=== PATIENT | female | born 1930 | race Caucasian/White ===

== ENCOUNTER 2017-04-02 13:45 | Inpatient (IN) | payer BC ==
[~2017-04-02] VITALS: Ht 160 cm; Wt 75.0 kg
[2017-04-02 14:20] VITALS: Ht 160 cm; Wt 75.0 kg
--- NOTE | 2017-04-02 14:46 | ERA ---
ER Documentation Chief Complaint Date/Time DATE: 04/02/17 TIME: 14:37 Chief Complaint HPI This is an 87-year-old female with no reported past medical history, though she is extremely hard of hearing who was found down this afternoon in the bathroom by her son with whom she lives. The patient states that she was taking a shower when she slipped. She does feel that this was a mechanical fall, but she does not know if she could have lost consciousness. She does not know exactly how long she was down for. She was found in the bathroom by her son. She did appear to hit her face and her hands and her left foot, which are all bruised. She does endorse tenderness to the right side of her face where the bruising is most prominent. She also has periorbital swelling that makes it difficult for her to open her eyelids. She does not have any eye pain. She does not describe any vision changes. She does not endorse any other head ache. She has no neck or back pain. She has no chest pain or trouble breathing. She has no abdominal pain. She is not incontinent of urine or stool. She has some discomfort to her hands bilaterally where there is bruising. She also some discomfort to the right elbow. However, she has full range of motion to all joints of her extremities. She denies any lower extremity pain or tenderness. She does have deformities to her toenails, but this is chronic. She has an abrasion to the left great toe, but she is able to move that as well. The patient does not have any other complaints at this time. ROS All systems reviewed and are negative except as per history of present illness. Medications Home Meds No Active Prescriptions or Reported Meds Allergies Allergies: Coded Allergies: Penicillins (Unverified Allergy, Unknown, 04/02/17) PMhx/Soc Medical and Surgical Hx: pt denies Medical Hx, pt denies Surgical Hx Hx Alcohol Use: No Hx Substance Use: No Hx Tobacco Use: No Smoking Status: Never smoker FmHx Family History: No coronary disease, No diabetes, No other Physical Exam Vitals Vital Signs Date Time Temp Pulse Resp B/P Pulse Ox O2 Delivery O2 Flow Rate FiO2 04/02/17 18:30 98.6 87 18 160/84 99 Room Air 04/02/17 18:02 78 18 152/115 96 Room Air 04/02/17 14:20 98.6 116 20 156/71 99 Physical Exam Const: No apparent distress, extreme hard of hearing, awake and alert. Head: Right-sided periorbital bruising and edema Eyes: Normal Conjunctiva, extraocular movements intact ENT: Normal External Ears, Nose and Mouth. No oral injuries. No hemotympanum. Neck: No midline cervical spine tenderness. ~ No meningismus. Resp: Clear to auscultation bilaterally Cardio: Regular rate and rhythm, no murmurs Abd: Soft, non tender, non distended. Normal bowel sounds Skin: Bruising to the bilateral hands, right face and left foot Back: No midline or flank tenderness Ext: No cyanosis. Nonpitting bilateral lower extreme and edema Neur: Awake and alert, follows commands in all extremities with normal strength and sensation, extraocular movements intact Psych: Normal Mood and Affect Result Diagram: 04/02/17 1426 04/02/17 1426 Results 24 hrs Laboratory Tests Test 04/02/17 14:26 White Blood Count 26.310^3/ul Red Blood Count 4.7410^6/ul Hemoglobin 14.5g/dl Hematocrit 45.1% Mean Corpuscular Volume 95.1fl Mean Corpuscular Hemoglobin 30.6pg Mean Corpuscular Hemoglobin Concent 32.2g/dl Red Cell Distribution Width 13.5% Platelet Count 43258^3/UL Mean Platelet Volume 10.3fl Neutrophils % % Segmented Neutrophils % (Manual) 85% Band Neutrophils % (Manual) 2% Lymphocytes % % Lymphocytes % (Manual) 5% Monocytes % % Monocytes % (Manual) 8% Eosinophils % % Basophils % % Nucleated Red Blood Cells % 0.0/100WBC Neutrophils # 22.410^3/ul Neutrophils # (Manual) 2210^3/ul Band Neutrophils # 0.510^3/ul Absolute Lymphocytes (Manual) 1.310^3/ul Lymphocytes # 1.310^3/ul Monocytes # 2.110^3/ul Absolute Monocytes (Manual) 2.110^3/ul Eosinophils # 10^3/ul Basophils # 10^3/ul Nucleated Red Blood Cells # 10^3/ul Platelet Morphology Comment Anisocytosis FEW Macrocytosis FEW Prothrombin Time 14.0Sec Prothrombin Time Ratio 1.1 INR International Normalized Ratio 1.08 Activated Partial Thromboplast Time 28.8Sec Sodium Level 141mmol/L Potassium Level 4.0mmol/L Chloride Level 109mmol/L Carbon Dioxide Level 15mmol/L Anion Gap 21 Blood Urea Nitrogen 20mg/dl Creatinine 1.12mg/dl Glucose Level 131mg/dl Calcium Level 10.0mg/dl Total Bilirubin 0.6mg/dl Direct Bilirubin 0.00mg/dl Indirect Bilirubin 0.6mg/dl Aspartate Amino Transf (AST/SGOT) 77IU/L Alanine Aminotransferase (ALT/SGPT) 50IU/L Alkaline Phosphatase 145IU/L Creatine Kinase 5932IU/L Total Protein 7.7g/dl Albumin 4.1g/dl Current Medications Medications (Trade) Dose Ordered Sig/Maricarmen Route PRN Reason Start Time Stop Time Status Last Admin Dose Admin Sodium Chloride 1,000 ml @ 1,000 mls/hr Q1H ONCE IV 04/02/17 15:30 04/02/17 16:29 DC 04/02/17 15:57 Sodium Chloride (NS) 1,000 ml @ 80 mls/hr [id number] IV 04/02/17 18:25 04/02/17 19:15 DC Ondansetron HCl (Zofran Inj) 4 mg BRIDGE ORDER PRN IV NAUSEA AND/OR VOMITING 04/02/17 18:30 04/02/17 19:14 DC Acetaminophen 650 mg 650 mg ER BRIDGE PRN PO MILD PAIN/FEVER 04/02/17 18:30 04/03/17 18:29 Sodium Chloride (NS) 1,000 ml @ 175 mls/hr [id number] IV 04/02/17 19:05 IV Flush (NS 3 ml) 3 ml PER PROTOCOL IV 04/02/17 19:30 Ondansetron HCl (Zofran Inj) 4 mg Q6H PRN IV NAUSEA AND/OR VOMITING 04/02/17 19:30 Morphine Sulfate (morphine) 2 mg Q4H PRN IV SEVERE PAIN LEVEL 7-10 04/02/17 19:30 Magnesium Hydroxide (Milk Of Mag) 30 ml DAILY PRN PO CONSTIPATION 04/02/17 19:30 Hydralazine HCl (Apresoline) 10 mg Q4H PRN IV SBP>160 04/02/17 19:30 Procedures/MDM The patient presents after a fall. It is unclear if the patient could have syncopized. Syncope and trauma workup were performed. The patient was found to have leukocytosis but no left shift. I do believe this to be reactive. She has no obvious findings of a systemic infection at this time. Patient's CMP showed an elevation of her BUN and creatinine. A CK was also done that demonstrated rhabdomyolysis. Patient was given IV fluids in the emergency department. CT scan of the head and face were performed without any obvious acute posttraumatic abnormalities. There is no intracranial hemorrhage. There is no evidence of fracture or dislocation to the face. There was soft tissue swelling and edema anteriorly that was also noticeable clinically. CT scan of the cervical spine demonstrated multiple regions of mild anterolisthesis. The patient has no cervical spine midline tenderness. There are no obvious traumatic injuries or fractures. The patient was able to range her neck with no discomfort. Her cervical spine was clinically cleared in the emergency department. Patient's chest x-ray revealed mild cardiomegaly, mild pulmonary congestion and a calcific aorta. There are no signs of traumatic injury however. The patient had x-rays performed of her extremities as well in areas of bruising. They demonstrated degenerative changes but no obvious fracture or dislocation. The patient requires admission for follow-up of her head injury as well as for rhabdomyolysis. The patient was given IV fluids in the emergency department and was started on a normal saline infusion. She may require serial neuro exams and may require repeat CT scan in the morning given the severity of her injury. She currently does not have any focal deficits. further workup in the hospital will be deferred to the hospitalist service. Departure Diagnosis: Primary Impression: Rhabdomyolysis Qualified Code: T79.6XXA - Traumatic rhabdomyolysis, initial encounter Additional Impressions: Head injury Qualified Code: S09.90XA - Head injury, initial encounter Periorbital edema of right eye Traumatic ecchymosis of multiple sites of lower extremity Qualified Code: S80.10XA - Traumatic ecchymosis of multiple sites of lower extremity, unspecified laterality, initial encounter Condition: Serious KULDIP LOPEZ MD Apr 02, 2017 14:45
[2017-04-02 14:50] LABS: ABNORMAL IP MESSAGE 1; HEMATOCRIT 45.1 % (37.0-47.0); HEMOGLOBIN 14.5 g/dl (12.0-16.0); MEAN CORPUSCULAR HEMOGLOBIN 30.6 pg (29.0-33.0); MEAN CORPUSCULAR HGB CONC 32.2 g/dl (32.0-37.0); MEAN CORPUSCULAR VOLUME 95.1 fl (82.0-101.0); MEAN PLATELET VOLUME 10.3 fl (7.4-10.4); PLATELET COUNT 297 10^3/UL (140-415); RED BLOOD COUNT 4.74 10^6/ul (4.20-5.40); RED CELL DISTRIBUTION WIDTH 13.5 % (11.5-14.5); WHITE BLOOD COUNT 26.3 10^3/ul (4.8-10.8)
[2017-04-02 14:59] LABS: POSITIVE DIFF @See below
--- NOTE | 2017-04-02 15:11 | RADRPT ---
PROCEDURE: XR Chest. CLINICAL INDICATION: Trauma TECHNIQUE: Single frontal view of the chest was obtained. COMPARISON: None. FINDINGS: There is mild cardiomegaly and mild pulmonary vascular congestion. The aortic arch is calcified. The lungs are clear. There is no significant pleural effusion or pneumothorax. IMPRESSION: Mild cardiomegaly and mild pulmonary vascular congestion. Aortic atherosclerosis. RPTAT: EE Physician Vilma Date Time Electronically viewed and signed by Austyn Mckeon Physician on 04/02/2017 15:10 /
[2017-04-02 15:13] LABS: INR 1.08; PT RATIO 1.1
[2017-04-02 15:14] LABS: PARTIAL THROMBOPLASTIN TIME 28.8 Sec (25.0-35.0)
[2017-04-02 15:17] LABS: ALBUMIN 4.1 g/dl (3.3-4.9); BILIRUBIN,INDIRECT 0.6 mg/dl (0-1.1); BILIRUBIN,TOTAL 0.6 mg/dl (0.2-1.3); CREATININE 1.12 mg/dl (0.44-1.00); TOTAL PROTEIN 7.7 g/dl (6.1-8.1)
--- NOTE | 2017-04-02 15:29 | RADRPT ---
PROCEDURE: CT Brain without contrast. CLINICAL INDICATION: Trauma, pain. TECHNIQUE: A CT of the brain was performed on multidetector high-resolution CT scanner utilizing a xial sections from the skull base through the vertex without contrast. The scan was reviewed in sof t tissue brain and high frequency resolution bone algorithm windows. Images were reviewed on a high -resolution PACS workstation. One or more the following does reduction techniques were utilized: Aut omated exposure control, adjustment of the mA/ or kV according to patient's size, or use of iterativ e reconstruction technique. The exam CTDI = 43.95 mGy and the DLP = 630.2 mGy-cm. COMPARISON: None available. FINDINGS: The ventricles and sulci are mildly prominent indicative of volume loss. There is no intracranial h emorrhage, mass effect or midline shift. No abnormal intra-axial or extra-axial fluid collections a re seen. The dai/white matter differentiation is preserved. There are mild scattered foci of hypoattenuation in the white matter, which are nonspecific in etiol ogy but likely reflect chronic small vessel ischemic changes. There are mild intracranial vascular calcifications consistent with atherosclerosis. The visualized paranasal sinuses are essentially paula ar. Right frontal temporal scalp swelling and hematoma are noted without underlying skull fracture. IMPRESSION: 1. No acute intracranial hemorrhage, transcortical infarction or mass effect. 2. Mild intracranial atherosclerosis and chronic small vessel ischemic changes. 3. Mild generalized cerebral volume loss. 4. Right frontal temporal scalp swelling and hematoma are noted without underlying skull fracture. RPTAT: HH .Kimmie Lo MD, MD Date Time Electronically viewed and signed by .Kimmie Lo MD, MD on 04/02/2017 15:29 .N/
[2017-04-02] MEDS ORDERED: SOD CHLORIDE 0.9% 1,000 ML IV ONE (15:30)
--- NOTE | 2017-04-02 15:38 | RADRPT ---
PROCEDURE: Noncontrast CT facial bones. CLINICAL INDICATION: Trauma. Status post fall. Right sided facial swelling. TECHNIQUE: Noncontrast CT of the facial bones was obtained. Coronal and sagittal re-formations were provided. The administered radiation dose was CTDI vol = 29.46 mGy, DLP = 523.74 mGy-cm. One or mo re of the following dose reduction techniques were used: Automated exposure control, Adjustment of t he mA and/or kV according to patient size, or Use of iterative reconstruction technique. COMPARISON: There are no similar studies submitted for comparison. FINDINGS: OSSEOUS STRUCTURES: There is no acute fracture. No destructive osseous lesion is identified. There i s a right lateral facial/zygomatic subcutaneous hematoma measuring up to 1.4 cm in thickness. There is mild right frontal scalp subcutaneous hematoma as well. ORBITS: The bilateral globes are intact. The patient is status post left lens surgery. There is no o rbital hematoma. SINUSES: There is minimal bilateral ethmoid, minimal bilateral sphenoid, and minimal bilateral maxil jihan sinus mucosal thickening. SKULL: Please refer to the CT of the head report from the same day. There are moderate to severe d egenerative changes within the cervical spine. IMPRESSION: 1. No acute fracture. 2. The bilateral globes are intact without orbital hematoma. 3. Right lateral facial / zygomatic as well as right frontal scalp hematoma. Further findings as detailed above. RPTAT: PP .Mario Nj MD, Date Time Electronically viewed and signed by .Mario Nj MD, on 04/02/2017 15:37 .F/
--- NOTE | 2017-04-02 15:51 | RADRPT ---
PROCEDURE: CT Cervical Spine without intravenous contrast CLINICAL INDICATION: Trauma. COMPARISON: None available. TECHNIQUE: Axial noncontrast CT images of the cervical spine with coronal and sagittal reformats. DOSE ESTIMATE: CTDI vol = 22 mGy. DLP = 388 mGy-cm. One or more of the following dose reduction te chniques were used: automated exposure control, adjustment of the mA and/or kV according to patient size, or use of iterative reconstruction. FINDINGS: Alignment: Dextroconvex curvature of the lower cervical spine. 2 mm anterolisthesis of C3 on C4 and C6 on C7. 4 mm anterolisthesis of C7 on T1. Vertebrae: No fracture, vertebral body height loss, or destructive bone lesion. Discs: Diffuse desiccation of disk height loss. Degenerative change: Moderate anterior endplate spurring, uncovertebral joint arthropathy, and facet arthropathy throughout the cervical spine resulting in varying degrees of central canal and foramin al narrowing. Severe narrowing of both C3-C4 neural foramina, both C4-C5 neural foramina and both C 5-C6 neural foramina. Moderate or severe narrowing at the left C6-C7 and left C7-T1 neural foramina . Hypertrophic soft tissue and proliferative changes at the anterior atlantodental interval. Paraspinal soft tissues: No prevertebral soft tissue swelling Visualized posterior fossa: Normal. Visualized neck: Normal. Visualized lung apices: Normal. Additional comment: None. IMPRESSION: 1. No acute fracture or vertebral body height loss. 2. 2 mm anterolisthesis of C3 on C4 and C6 on C7. 3. 4 mm anterolisthesis of C7 and T1. 4. Severe degenerative changes of the cervical spine. RPTAT: PP Physician Tonie Date Time Electronically viewed and signed by Physician Tonie on 04/02/2017 15:51 /
--- NOTE | 2017-04-02 16:20 | RADRPT ---
PROCEDURE: XR Left foot. CLINICAL INDICATION: Left foot pain, trauma TECHNIQUE: 2 views of the left foot were obtained. COMPARISON: No prior studies are available for comparison. FINDINGS: The bones are osteopenic. Study is markedly limited due to severe flexion and extension deformity o f the toes. There is severe first metatarsophalangeal joint osteoarthrosis. There is apparent subluxation at the metatarsophalangeal joints but not well assessed. Diffuse soft tissue swelling and a moderate sized plantar calcaneal enthesophyte. IMPRESSION: 1. Very limited study distally due to flexion/extension deformities of the toes. 2. No definite radiographic evidence of acute fracture noting background osteopenia. Consider repea t imaging or CT for further evaluation as clinically warranted. 3. Severe degenerative changes at the first metatarsophalangeal joint. 4. Mild diffuse soft tissue swelling. RPTAT: UU .Julio Sinhg MD, MD Date Time Electronically viewed and signed by .Julio Singh MD, on 04/02/2017 16:20 .K/
--- NOTE | 2017-04-02 16:22 | RADRPT ---
PROCEDURE: XR Wrist. CLINICAL INDICATION: Right wrist pain TECHNIQUE: AP, lateral and oblique views of the right wrist were performed. COMPARISON: No prior studies are available for comparison. FINDINGS: There is no acute fracture or dislocation. The bones are osteopenic. There is severe first carpometacarpal and triscaphe osteoarthrosis. There is prominent chondrocalcinosis. There is diffuse soft tissue swelling. IMPRESSION: 1. No radiographic evidence of acute fracture noting background osteopenia. 2. Severe first carpometacarpal and triscaphe degenerative changes and background chondrocalcinosis, query CPPD arthropathy. 3. Diffuse soft tissue swelling at the wrist. RPTAT: UU .Julio Singh MD, MD Date Time Electronically viewed and signed by .Julio Singh MD, on 04/02/2017 16:21 .K/
--- NOTE | 2017-04-02 16:23 | RADRPT ---
PROCEDURE: XR Wrist. CLINICAL INDICATION: Left wrist pain TECHNIQUE: AP, lateral and oblique views of the left wrist were performed. COMPARISON: No prior studies are available for comparison. FINDINGS: There is no acute fracture or dislocation. The bones are osteopenic. There is severe first carpometacarpal and triscaphe osteoarthrosis. Prominent subchondral cysts in t he lunate suggest superimposed chronic ulnocarpal abutment. There is prominent chondrocalcinosis. There is diffuse soft tissue swelling. IMPRESSION: 1. No radiographic evidence of acute fracture noting background osteopenia. 2. Severe first carpometacarpal and triscaphe degenerative changes and background chondrocalcinosis, query CPPD arthropathy. 3. Superimposed chronic ulnocarpal abutment. 4. Diffuse soft tissue swelling at the wrist. RPTAT: UU .Julio Singh MD, MD Date Time Electronically viewed and signed by .Julio Singh MD, on 04/02/2017 16:22 .K/
--- NOTE | 2017-04-02 16:25 | RADRPT ---
PROCEDURE: XR Elbow. CLINICAL INDICATION: Right elbow pain TECHNIQUE: 3 views of the right elbow performed. COMPARISON: None. FINDINGS: There is no definite acute fracture noting background osteopenia. Somewhat limited assessment for j oint effusion given the suboptimal lateral views. Alignment is normal. Joint spaces are preserved. There is no significant joint effusion. Soft tissues are grossly unremarkable. IMPRESSION: 1. No definite acute fracture noting background osteopenia. 2. No evidence of joint effusion though the lateral view is suboptimal and somewhat limited. RPTAT: UU .Julio Singh MD, MD Date Time Electronically viewed and signed by .Julio Singh MD, on 04/02/2017 16:24 .K/
[2017-04-02 17:05] LABS: LYMPHOCYTES # 1.3 10^3/ul (0.8-2.9); MONOCYTE # 2.1 10^3/ul (0.3-0.9); MONOCYTES % (M) 8 % (0-11); NEUTROPHIL # 22.4 10^3/ul (1.6-7.5)
[2017-04-02 17:06] LABS: ANISOCYTOSIS FEW (0-0)
[2017-04-02] MEDS ORDERED: SOD CHLORIDE 0.9% 1,000 ML IV SCH (18:25)
[2017-04-02] MEDS ORDERED: ONDANSETRON 4 MG INJ IV PRN ×2 (18:30→19:30)
[2017-04-02] MEDS ORDERED: ACETAMINOPHEN 325 MG TAB PO PRN (18:30)
--- NOTE | 2017-04-02 19:26 | HP ---
Date/Time of Note Date/Time of Note DATE: 04/02/17 TIME: 19:14 Assessment/Plan VTE Prophylaxis VTE Prophylaxis Intervention: SCD's Assessment/Plan Chief Complaint/Hosp Course Patient is a 79-year-old female who presents status post traumatic fall and is found in rhabdomyolysis. Assessment and problem list Rhabdomyolysis Traumatic fall Right facial\zygomatic frontal scalp hematoma, stable Elevated CK Leukocytosis Acute kidney injury versus chronic kidney disease Elevated AST Questionable pulmonary edema Questionable cardiomegaly Left toe superficial laceration Severe degenerative changes of the cervical spine Mild headache Plan -Patient has no acute fractures and bruising is stable, monitor -Patient has questionable pulmonary edema, will be cautious with fluids however patient does needs fluids to prevent kidney injury, normal saline for now -Insert Aragon catheter, will repeat creatinine in the a.m. as it is only mildly elevated, if similar or worse will order urine electrolytes as well as ultrasound renal -Echocardiogram ordered for possible cardiomegaly\pulmonary edema -Leukocytosis likely reactive, no obvious source of infection, UA is pending, will hold off on antibiotics for now however if worsening we will start antibiotics and cultures -Elevated AST is very mild, monitor for now, questionable fatty liver -Pain medications as needed -Wound care Problems: HPI/ROS Admit Date/Time Admit Date/Time Hx of Present Illness Patient is a 87-year-old female who presents to [facility] after suffering a slip in the shower and found down by her son when he was visiting. Patient lives alone but does have a high functioning capacity. Patient cleans, dresses herself and has food delivered to her house as well as 1 of her 4 children who also bring food to her. Patient has a large facial bruise as well as a very superficial laceration on her left great toe and some mild bruising on her wrists bilaterally. Patient is extremely hard of hearing however patient is alert and oriented 4 and her sons are at bedside to provide information as well. According to patient's son he found her down on the side of the tub and states that initially the patient did not remember who he was, however she is back to her normal mentation at this time. Patient states that she fell but does not know if she lost consciousness. Patient has an unknown downtime and is found in rhabdomyolysis. Patient has good outpatient follow-up and is not taking any medications and is not diagnosed with any diseases except for occasional migraines. 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 Eyes: EOMI, pupils reactive to light Neck: Supple, nontender, midline Respiratory: Clear to auscultation bilaterally Cardiovascular: regular rate, no obvious murmurs Gastrointestinal: non-tender to palpation, bowel sounds heard. Neurological: Moves all extremities spontaneously Skin:bruising on scalp/face, wrists bilaterally, and left great toe. Labs Result Diagram: 04/02/17 1426 04/02/17 1426 Medications Medications Current Medications Sodium Chloride 1,000 ml @ 80 mls/hr [id number] IV ; Start 04/02/17 at 18:25; Stop 04/03/17 at 06:54 Sodium Chloride (NS) 1,000 ml @ 175 mls/hr Q5H43M IV ; Start 04/02/17 at 19:05 ; Status UNV Ondansetron HCl (Zofran Inj) 4 mg Q6H PRN IV NAUSEA AND/OR VOMITING; Start at 19:30; Status UNV Morphine Sulfate (morphine) 2 mg Q4H PRN IV SEVERE PAIN LEVEL 7-10; Start 04/02 at 19:30; Status UNV Magnesium Hydroxide (Milk Of Mag) 30 ml DAILY PRN PO CONSTIPATION; Start at 19:30; Status UNV Hydralazine HCl (Apresoline) 10 mg Q4H PRN IV SBP>160; Start 04/02/17 at 19:30 ; Status UNV MELODY UMANA Apr 02, 2017:24
[2017-04-02] MEDS ORDERED: hydrALAzine 20 MG INJ IV PRN (19:30)
[2017-04-02] MEDS ORDERED: NACL 0.9% 3 ML SYG IV SCH (19:30)
[2017-04-02 20:32] VITALS: PULSE 94; TEMP 98.6
[2017-04-02 20:50] VITALS: BP 136/95; RESP 20
[2017-04-02 20:50] LABS: ADD UMIC YES; UR ASCORBIC ACID NEGATIVE (NEGATIVE); UR BACTERIA MANY /HPF (NONE SEEN); UR BILIRUBIN (Dip) NEGATIVE (NEGATIVE); UR BLOOD (Dip) 3+ mg/dL (NEGATIVE); UR CLARITY SLIGHTLY CLOUDY (CLEAR); UR COLOR YELLOW (YELLOW); UR GLUCOSE (Dip) NEGATIVE (NEGATIVE); UR KETONES (Dip) 1+ mg/dL (NEGATIVE); UR LEUKOCYTE ESTERASE (Dip) NEGATIVE Leu/ul (NEGATIVE); UR MUCUS FEW /HPF (NONE SEEN); UR NITRITE (Dip) NEGATIVE (NEGATIVE); UR RBC 1 /HPF (0-5); UR SPECIFIC GRAVITY (Dip) 1.006 (1.003-1.030); UR TOTAL PROTEIN (Dip) 1+ mg/dl (NEGATIVE); UR UROBILINOGEN (Dip) NEGATIVE (NEGATIVE)
[2017-04-02 20:59] LABS: BARBITURATES Negative (NEGATIVE); BENZODIAZEPINES Negative (NEGATIVE); CANNABINOIDS Negative (NEGATIVE); COCAINE Negative (NEGATIVE); OPIATES Negative (NEGATIVE)
[2017-04-02] MEDS: morphine 2 MG INJ IV PRN (22:47)
[2017-04-03 02:00] VITALS: BP 123/64; RESP 20
--- NOTE | 2017-04-03 05:09 | RADRPT ---
PROCEDURE: MR Brain without contrast. CLINICAL INDICATION: Fall, head trauma, loss of consciousness TECHNIQUE: An MRI of the brain was performed on a Signa HDxt 3Tscanner utilizing the following seq uences: Sagittal and axial T1 weighted, axial T2 weighted, axial FLAIR, axial and coronal GRE and ax ial diffusion weighted with ADC mapping. COMPARISON: None FINDINGS: No high signal abnormalities are seen on the diffusion-weighted images to suggest the presence of ac koi ischemia or recent infarct. There is no evidence of intracranial hemorrhage, mass effect, or mi dline shift. No extra-axial fluid collections are seen. Mild diffuse volume loss is evident. T2 -weighted/FLAIR hyperintensities are seen within the periventricular and subcortical white matter, c onsistent with moderate microvascular ischemic disease. The signal intensity is normal within the brainstem and cerebellum. No hypointense signal abnormalities are seen on the GRE images to suggest the presence of blood degradation products. Normal flow voids are visible in the proximal intracran ial arteries and dural sinuses, indicating patency. The sellar parasellar regions are normal. The c raniocervical junction is normal. There is mild mucosal thickening in the ethmoid and left sphenoid sinus.. IMPRESSION: 1. No evidence of acute intracranial pathology. 2. Mild diffuse volume loss with moderate microvascular ischemic disease. RPTAT: HCNS Physician Cedric Date Time Electronically viewed and signed by Physician Cedric on 04/03/2017 05:08 /
[2017-04-03] MEDS: SOD CHLORIDE 0.9% 1,000 ML IV SCH ×7 (06:00→23:59)
[2017-04-03 06:16] LABS: ABNORMAL IP MESSAGE 1; BASOPHILS % 0.2 % (0.0-2.0); EOSINOPHILS % 0.1 % (0.0-7.0); HEMATOCRIT 40.6 % (37.0-47.0); HEMOGLOBIN 13.2 g/dl (12.0-16.0); LYMPHOCYTES # 2.3 10^3/ul (0.8-2.9); LYMPHOCYTES % 13.1 % (15.0-51.0); MEAN CORPUSCULAR HEMOGLOBIN 30.3 pg (29.0-33.0); MEAN CORPUSCULAR HGB CONC 32.5 g/dl (32.0-37.0); MEAN CORPUSCULAR VOLUME 93.3 fl (82.0-101.0); MEAN PLATELET VOLUME 10.1 fl (7.4-10.4); MONOCYTE # 1.9 10^3/ul (0.3-0.9); MONOCYTES % 11.1 % (0.0-11.0); NEUTROPHILS % 75.2 % (39.0-77.0); PLATELET COUNT 246 10^3/UL (140-415); RED BLOOD COUNT 4.35 10^6/ul (4.20-5.40); RED CELL DISTRIBUTION WIDTH 14.2 % (11.5-14.5); WHITE BLOOD COUNT 17.3 10^3/ul (4.8-10.8)
[2017-04-03 06:39] LABS: POSITIVE DIFF @See below
[2017-04-03 06:48] LABS: BILIRUBIN,INDIRECT 0.7 mg/dl (0-1.1); BILIRUBIN,TOTAL 0.7 mg/dl (0.2-1.3); CALCIUM 9.2 mg/dl (8.4-10.2); CREATININE 0.86 mg/dl (0.44-1.00); POTASSIUM 4.2 mmol/L (3.5-5.1)
[2017-04-03 06:49] LABS: ALBUMIN/GLOBULIN RATIO 0.93; TOTAL PROTEIN 6.2 g/dl (6.1-8.1)
[2017-04-03 07:55] VITALS: BP 125/73; RESP 20
--- NOTE | 2017-04-03 08:32 | RADRPT ---
PROCEDURE: XR Chest 1 View. CLINICAL INDICATION: Shortness of breath. TECHNIQUE: AP view of the chest was obtained. COMPARISON: Yesterday. FINDINGS: The heart size is within normal limits. Calcified atherosclerosis is noted in the aorta. Subsegment al atelectasis is noted at the lung bases. No consolidations are identified. No pneumothorax is see n. Osseous structures are unchanged. IMPRESSION: Calcified atherosclerosis in the aorta. Subsegmental atelectasis at the lung bases. RPTAT: AA .Eliu Hoyos MD, Date Time Electronically viewed and signed by .Eliu Hoyos MD, on 04/03/2017 08:31 .P/
[2017-04-03] MEDS: morphine 2 MG INJ IV PRN (10:34)
[2017-04-03] MEDS ORDERED: morphine 10 MG INJ IM PRN (12:00)
--- NOTE | 2017-04-03 13:44 | RADRPT ---
Echocardiogram Report Patient Name: SUMI DAMON Gender: Female Date: 1930 Study Date: 03-Apr-2017 Flux Tube Attendant: Isabella Gonzalez [facility] Location: 627 Ref. Physician: MELODY UMANA Quality: Technically Difficult Study Procedures: Transthoracic echocardiogram with complete 2D, M-Mode, and doppler examination. Indications: Pulmonary Edema. 2D/M Mode Doppler Measurement Value Normal Ranges Measurement Value Normal Ranges LVIDd 2D 3.4 3.5 - 5.6 cm AV Peak Diego 1.3 m/sec LVIDs 2D 2.4 2.1 - 4.1 cm AV Peak PG 7.0 mmHg FS 2D 29.1 % LVOT Peak Diego 1.0 m/sec LVPWd 2D 0.8 0.6 - 1.1 cm LVOT Peak PG 4.0 mmHg IVSd 2D 0.8 0.6 - 1.1 cm MV E Peak Diego 0.7 m/sec IVS/LVPW 2D 1.0 MV A Peak Diego 1.0 m/sec AoR Diam 2D 2.6 2.0 - 3.7 cm MV E/A 0.7 LA/Ao 2D 1 0 - 1 MV Decel Time 180 msec EDV 2D 39.3 cm3 MV E/A 0.7 ESV 2D 14.0 cm3 TR Peak Diego 2.3 m/sec LA Dimen 2D 2.2 2.3 - 4.0 cm TR Peak PG 22.0 mmHg RVSP 25.0 mmHg Findings Left Ventricle: Normal left ventricular systolic function. Normal left ventricular cavity size. Normal left ventricular wall thickness. Ejection fraction is visually estimated at 55 %. Tissue Doppler/Mitral Doppler indices are consistent with impaired relaxation (Stage I diastolic dysfunction). Right Ventricle: Normal right ventricular size. Normal right ventricular systolic function. Left Atrium: The left atrium is normal in size. Right Atrium: The right atrium is normal in size. Mitral Valve: Normal appearance of the mitral valve. Mild mitral annular calcification. Mild mitral valve regurgitation. Aortic Valve: Normal appearance of the aortic valve. No significant aortic stenosis or insufficiency. Tricuspid Valve: Normal appearance of the tricuspid valve. Estimated peak PA systolic pressure 25 mmHg. There is trace tricuspid regurgitation. Pulmonic Valve: Normal pulmonic valve appearance. There is trace pulmonic regurgitation. Pericardium: Normal pericardium with no significant pericardial effusion. Aorta: Normal aortic root. IVC: Normal size and normal respiratory collapse consistent with normal right atrial pressure. Conclusions 1.Normal left ventricular systolic function. Normal left ventricular cavity size. Normal left ventricular wall thickness. Ejection fraction is visually estimated at 55 %. Tissue Doppler/Mitral Doppler indices are consistent with impaired relaxation (Stage I diastolic dysfunction). 2.Normal right ventricular size. Normal right ventricular systolic function. 3.The left atrium is normal in size. 4.The right atrium is normal in size. 5.Mild mitral valve regurgitation. 6.No significant valvular stenosis or regurgitation seen of remaining visualized valves. 7.Normal pericardium with no significant pericardial effusion. Electronically Signed By: Cam Oshea 03-Apr-2017 13:43:49 -0700 Patient Name: SUMI DAMON Study Date: 03-Apr-2017 [id number]
[2017-04-03 14:51] VITALS: BP 126/62; RESP 20
--- NOTE | 2017-04-03 16:37 | PN ---
Date/Time of Note Date/Time of Note DATE: 04/03/17 TIME: 16:33 Assessment/Plan VTE Prophylaxis VTE Prophylaxis Intervention: SCD's Lines/Catheters IV Catheter Type (from Nrs): Saline Lock Urinary Cath still in place: Yes Reason Cath still needed: terminal illness/intractable pain Assessment/Plan Chief Complaint/Hosp Course Patient is a 79-year-old female who presents status post traumatic fall and is found in rhabdomyolysis. 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 need to stay ahead of rhabo, increase fluids to 200 now that patient does not show signs of fluid overload. repeat CK in the AM -liver enzymes elevated, repeat and f/u as needed. if continues to increase, will obtain imaging. -echo noted -mri noted -swelling decreased on face significantly, monitor -Pain medications as needed -Wound care Problems: Subjective 24 Hr Interval Summary Free Text/Dictation patient complains of headache Exam/Review of Systems Vital Signs Vitals Vital Signs Date Time Temp Pulse Resp B/P Pulse Ox O2 Delivery O2 Flow Rate FiO2 04/03/17 14:51 98.7 77 20 126/62 97 04/02/17 20:32 Room Air Intake and Output 04/02/17 04/02/17 04/03/17 15:00 23:00 07:00 Intake Total 1120 ml Output Total 600 ml Balance 520 ml Exam Physical exam General: Patient is laying in bed and answers questions appropriately, hard of hearing Mentation: Patient is alert and oriented 4, Head: Normocephalic, large area of bruising around the orbits. Eyes: EOMI, pupils reactive to light Neck: Supple, nontender, midline Respiratory: Clear to auscultation bilaterally Cardiovascular: regular rate, no obvious murmurs Gastrointestinal: non-tender to palpation, bowel sounds heard. Neurological: Moves all extremities spontaneously Skin:bruising on scalp/face, wrists bilaterally, and left great toe. Results Result Diagram: 04/03/17 0539 04/03/17 0539 Results 24 hrs Laboratory Tests Test 04/02/17 20:00 04/03/17 05:39 Urine Color YELLOW Urine Clarity SLIGHTLY CLOUDY A Urine pH 5.0 Urine Specific [place] 1.006 Urine Ketones 1+ H Urine Nitrite NEGATIVE Urine Bilirubin NEGATIVE Urine Urobilinogen NEGATIVE Urine Leukocyte Esterase NEGATIVE Urine Microscopic RBC 1 Urine Microscopic WBC 0 Urine Bacteria MANY A Urine Mucus FEW A Urine Hemoglobin 3+ H Urine Glucose NEGATIVE Urine Total Protein 1+ H Urine Opiates Screen Negative Urine Barbiturates Negative Urine Amphetamines Screen Negative Urine Benzodiazepines Screen Negative Urine Cocaine Screen Negative Urine Cannabinoids Negative White Blood Count 17.3 #H Red Blood Count 4.35 Hemoglobin 13.2 Hematocrit 40.6 Mean Corpuscular Volume 93.3 Mean Corpuscular Hemoglobin 30.3 Mean Corpuscular Hemoglobin Concent 32.5 Red Cell Distribution Width 14.2 Platelet Count 246 Mean Platelet Volume 10.1 Neutrophils % 75.2 Lymphocytes % 13.1 L Monocytes % 11.1 H Eosinophils % 0.1 Basophils % 0.2 Nucleated Red Blood Cells % 0.0 Neutrophils # (Manual) 13 H Lymphocytes # 2.3 Monocytes # 1.9 H Eosinophils # 0.0 Basophils # 0.0 Nucleated Red Blood Cells # 0.0 Sodium Level 144 Potassium Level 4.2 Chloride Level 111 H Carbon Dioxide Level 21 Anion Gap 16 Blood Urea Nitrogen 18 Creatinine 0.86 Glucose Level 96 Calcium Level 9.2 Total Bilirubin 0.7 Direct Bilirubin 0.00 Indirect Bilirubin 0.7 Aspartate Amino Transf (AST/SGOT) 233 H Alanine Aminotransferase (ALT/SGPT) 97 H Alkaline Phosphatase 110 Creatine Kinase 46785 #H Total Protein 6.2 # Albumin 3.0 #L Globulin 3.20 Albumin/Globulin Ratio 0.93 Medications Medications Current Medications Sodium Chloride (NS) 1,000 ml @ 200 mls/hr Q5H IV Last administered on t 13:17; Admin Dose 200 MLS/HR; Start 04/02/17 at 19:05 Ondansetron HCl (Zofran Inj) 4 mg Q6H PRN IV NAUSEA AND/OR VOMITING; Start at 19:30 Magnesium Hydroxide (Milk Of Mag) 30 ml DAILY PRN PO CONSTIPATION; Start at 19:30 Hydralazine HCl (Apresoline) 10 mg Q4H PRN IV SBP>160; Start 04/02/17 at 19:30 Morphine Sulfate (morphine) 1 mg Q4H PRN IM pain 6-10; Start 04/03/17 at 12:00 MELODY UMANA Apr 03, 2017 16:37
[2017-04-03 20:30] VITALS: BP 156/76; RESP 20
[2017-04-04 02:00] VITALS: BP 132/84; RESP 20
[2017-04-04] MEDS: SOD CHLORIDE 0.9% 1,000 ML IV SCH ×4 (05:38→22:43)
[2017-04-04 06:45] LABS: BASOPHILS % 0.3 % (0.0-2.0); EOSINOPHILS # 0.1 10^3/ul (0.0-0.5); EOSINOPHILS % 0.7 % (0.0-7.0); LYMPHOCYTES # 2.9 10^3/ul (0.8-2.9); MEAN CORPUSCULAR HEMOGLOBIN 30.9 pg (29.0-33.0); MEAN CORPUSCULAR HGB CONC 32.5 g/dl (32.0-37.0); MEAN PLATELET VOLUME 10.6 fl (7.4-10.4); MONOCYTE # 1.4 10^3/ul (0.3-0.9); MONOCYTES % 10.6 % (0.0-11.0); NEUTROPHILS % 65.8 % (39.0-77.0); PLATELET COUNT 213 10^3/UL (140-415); RED BLOOD COUNT 4.21 10^6/ul (4.20-5.40); RED CELL DISTRIBUTION WIDTH 14.3 % (11.5-14.5); WHITE BLOOD COUNT 13.2 10^3/ul (4.8-10.8)
[2017-04-04 07:17] LABS: ALBUMIN 2.8 g/dl (3.3-4.9); BILIRUBIN,INDIRECT 0.4 mg/dl (0-1.1); BILIRUBIN,TOTAL 0.4 mg/dl (0.2-1.3); CALCIUM 8.7 mg/dl (8.4-10.2); CREATININE 0.84 mg/dl (0.44-1.00); POTASSIUM 4.2 mmol/L (3.5-5.1); TOTAL PROTEIN 5.6 g/dl (6.1-8.1)
[2017-04-04 07:57] VITALS: BP 148/78; RESP 20
--- NOTE | 2017-04-04 12:46 | PN ---
Date/Time of Note Date/Time of Note DATE: 04/04/17 TIME: 12:44 Assessment/Plan VTE Prophylaxis VTE Prophylaxis Intervention: SCD's Lines/Catheters IV Catheter Type (from Nrsg): Saline Lock Urinary Cath still in place: Yes Reason Cath still needed: terminal illness/intractable pain Assessment/Plan Chief Complaint/Hosp Course Patient is a 79-year-old female who presents status post traumatic fall and is found in rhabdomyolysis. 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 continue fluids. repeat CK tomorrow AM -liver enzymes elevated, but down from before, will get US. repeat labs tmrw -echo noted -mri noted -swelling decreased on face significantly, monitor -Pain medications as needed, robaxin for neck stiffness. -Wound care Problems: Subjective 24 Hr Interval Summary Free Text/Dictation still has a stiff neck, not other acute complaints Exam/Review of Systems Vital Signs Vitals Vital Signs Date Time Temp Pulse Resp B/P Pulse Ox O2 Delivery O2 Flow Rate FiO2 04/04/17 07:57 98.6 74 20 148/78 96 04/02/17 20:32 Room Air Intake and Output 04/03/17 04/03/17 04/04/17 15:00 23:00 07:00 Intake Total 1000 ml 1780 ml 2360 ml Output Total 500 ml 1450 ml Balance 1000 ml 1280 ml 910 ml Exam Physical exam General: Patient is laying in bed and answers questions appropriately, hard of hearing Mentation: Patient is alert and oriented 4, Head: Normocephalic, bruising on the face Eyes: EOMI, pupils reactive to light Neck: Supple, nontender, midline Respiratory: Clear to auscultation bilaterally Cardiovascular: regular rate, no obvious murmurs Gastrointestinal: non-tender to palpation, bowel sounds heard. Neurological: Moves all extremities spontaneously Skin:bruising on scalp/face, wrists bilaterally, and left great toe. Results Result Diagram: 04/04/17 0601 04/04/17 0601 Results 24 hrs Laboratory Tests Test 04/04/17 06:00 04/04/17 06:01 Creatine Kinase 6641 #H White Blood Count 13.2 #H Red Blood Count 4.21 Hemoglobin 13.0 Hematocrit 40.0 Mean Corpuscular Volume 95.0 Mean Corpuscular Hemoglobin 30.9 Mean Corpuscular Hemoglobin Concent 32.5 Red Cell Distribution Width 14.3 Platelet Count 213 Mean Platelet Volume 10.6 H Neutrophils % 65.8 Lymphocytes % 22.0 Monocytes % 10.6 Eosinophils % 0.7 Basophils % 0.3 Nucleated Red Blood Cells % 0.0 Neutrophils # (Manual) 9 H Lymphocytes # 2.9 Monocytes # 1.4 H Eosinophils # 0.1 Basophils # 0.0 Nucleated Red Blood Cells # 0.0 Sodium Level 138 Potassium Level 4.2 Chloride Level 113 H Carbon Dioxide Level 21 Anion Gap 8 # Blood Urea Nitrogen 13 Creatinine 0.84 Glucose Level 109 Calcium Level 8.7 Total Bilirubin 0.4 Direct Bilirubin 0.00 Indirect Bilirubin 0.4 Aspartate Amino Transf (AST/SGOT) 148 H Alanine Aminotransferase (ALT/SGPT) 90 H Alkaline Phosphatase 99 Total Protein 5.6 L Albumin 2.8 L Globulin 2.80 Albumin/Globulin Ratio 1.00 Medications Medications Current Medications Sodium Chloride (NS) 1,000 ml @ 200 mls/hr Q5H IV Last administered on t 05:38; Admin Dose 200 MLS/HR; Start 04/02/17 at 19:05 Ondansetron HCl (Zofran Inj) 4 mg Q6H PRN IV NAUSEA AND/OR VOMITING; Start at 19:30 Magnesium Hydroxide (Milk Of Mag) 30 ml DAILY PRN PO CONSTIPATION; Start at 19:30 Hydralazine HCl (Apresoline) 10 mg Q4H PRN IV SBP>160; Start 04/02/17 at 19:30 Oxycodone HCl (Roxicodone) 2.5 mg Q4H PRN PO PAIN; Start 04/04/17 at 11:30 Methocarbamol (Robaxin) 500 mg TID PO ; Start 04/04/17 at 13:00 MELODY UMANA Apr 04, 2017 12:46
[2017-04-04 13:36] VITALS: BP 164/75; RESP 20
[2017-04-04] MEDS: METHOCARBAMOL 500 MG TAB PO SCH ×2 (13:38→20:59)
[2017-04-04 20:22] VITALS: BP 135/72; RESP 18
[2017-04-05] MEDS: oxyCODONE 5 MG TAB PO PRN ×2 (01:21→10:16)
[2017-04-05 02:35] VITALS: BP 138/68; RESP 19
[2017-04-05] MEDS: SOD CHLORIDE 0.9% 1,000 ML IV SCH ×5 (04:14→23:44)
[2017-04-05 06:42] LABS: BASOPHIL # 0.1 10^3/ul (0.0-0.1); BASOPHILS % 0.4 % (0.0-2.0); EOSINOPHILS # 0.1 10^3/ul (0.0-0.5); EOSINOPHILS % 0.5 % (0.0-7.0); HEMATOCRIT 36.7 % (37.0-47.0); HEMOGLOBIN 11.9 g/dl (12.0-16.0); LYMPHOCYTES # 2.4 10^3/ul (0.8-2.9); LYMPHOCYTES % 17.1 % (15.0-51.0); MEAN CORPUSCULAR HEMOGLOBIN 30.4 pg (29.0-33.0); MEAN CORPUSCULAR HGB CONC 32.4 g/dl (32.0-37.0); MEAN CORPUSCULAR VOLUME 93.9 fl (82.0-101.0); MEAN PLATELET VOLUME 10.6 fl (7.4-10.4); MONOCYTE # 1.5 10^3/ul (0.3-0.9); MONOCYTES % 10.5 % (0.0-11.0); NEUTROPHILS % 70.9 % (39.0-77.0); PLATELET COUNT 219 10^3/UL (140-415); RED BLOOD COUNT 3.91 10^6/ul (4.20-5.40); RED CELL DISTRIBUTION WIDTH 14.2 % (11.5-14.5); WHITE BLOOD COUNT 13.9 10^3/ul (4.8-10.8)
[2017-04-05 07:07] LABS: ALBUMIN 2.3 g/dl (3.3-4.9); ALBUMIN/GLOBULIN RATIO 0.88; BILIRUBIN,INDIRECT 0.6 mg/dl (0-1.1); BILIRUBIN,TOTAL 0.6 mg/dl (0.2-1.3); CALCIUM 8.6 mg/dl (8.4-10.2); CREATININE 0.74 mg/dl (0.44-1.00); POTASSIUM 4.6 mmol/L (3.5-5.1); TOTAL PROTEIN 4.9 g/dl (6.1-8.1)
[2017-04-05 07:23] VITALS: BP 134/65; RESP 22
[2017-04-05] MEDS: METHOCARBAMOL 500 MG TAB PO SCH ×3 (08:53→20:13)
--- NOTE | 2017-04-05 11:44 | PN ---
Date/Time of Note Date/Time of Note DATE: 04/05/17 TIME: 11:41 Assessment/Plan VTE Prophylaxis VTE Prophylaxis Intervention: SCD's Lines/Catheters IV Catheter Type (from Nrsg): Peripheral IV Urinary Cath still in place: Yes Reason Cath still needed: terminal illness/intractable pain Assessment/Plan Chief Complaint/Hosp Course Patient is a 79-year-old female who presents status post traumatic fall and is found in rhabdomyolysis. 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 continue fluids. repeat CK tomorrow AM -liver enzymes elevated, but down from before, will get US. ordered yesterday, but still pending. -echo noted -mri noted -swelling decreased on face significantly, monitor -Pain medications as needed, robaxin for neck stiffness. titrate robaxin as needed. -Wound care Problems: Subjective 24 Hr Interval Summary Free Text/Dictation still has mild neck pain Exam/Review of Systems Vital Signs Vitals Vital Signs Date Time Temp Pulse Resp B/P Pulse Ox O2 Delivery O2 Flow Rate FiO2 04/05/17 07:23 98.5 86 22 134/65 96 04/02/17 20:32 Room Air Intake and Output 04/04/17 04/04/17 04/05/17 15:00 23:00 07:00 Intake Total 1000 ml 1640 ml 1200 ml Output Total 1800 ml Balance 1000 ml -160 ml 1200 ml Exam Physical exam General: Patient is laying in bed and answers questions appropriately, hard of hearing Mentation: Patient is alert and oriented 4, Head: Normocephalic, bruising on the face Eyes: EOMI, pupils reactive to light Neck: Supple, nontender, midline Respiratory: Clear to auscultation bilaterally Cardiovascular: regular rate, no obvious murmurs Gastrointestinal: non-tender to palpation, bowel sounds heard. Neurological: Moves all extremities spontaneously Skin:bruising on scalp/face, wrists bilaterally, and left great toe. Results Result Diagram: 04/05/17 0459 04/05/17 0459 Results 24 hrs Laboratory Tests Test 04/05/17 04:59 White Blood Count 13.9 H Red Blood Count 3.91 L Hemoglobin 11.9 L Hematocrit 36.7 L Mean Corpuscular Volume 93.9 Mean Corpuscular Hemoglobin 30.4 Mean Corpuscular Hemoglobin Concent 32.4 Red Cell Distribution Width 14.2 Platelet Count 219 Mean Platelet Volume 10.6 H Neutrophils % 70.9 Lymphocytes % 17.1 Monocytes % 10.5 Eosinophils % 0.5 Basophils % 0.4 Nucleated Red Blood Cells % 0.0 Neutrophils # (Manual) 10 H Lymphocytes # 2.4 Monocytes # 1.5 H Eosinophils # 0.1 Basophils # 0.1 Nucleated Red Blood Cells # 0.0 Sodium Level 139 Potassium Level 4.6 Chloride Level 109 Carbon Dioxide Level 21 Anion Gap 14 Blood Urea Nitrogen 11 Creatinine 0.74 Glucose Level 105 Calcium Level 8.6 Total Bilirubin 0.6 Direct Bilirubin 0.00 Indirect Bilirubin 0.6 Aspartate Amino Transf (AST/SGOT) 105 H Alanine Aminotransferase (ALT/SGPT) 83 H Alkaline Phosphatase 88 Creatine Kinase 2426 #H Total Protein 4.9 L Albumin 2.3 L Globulin 2.60 Albumin/Globulin Ratio 0.88 Medications Medications Current Medications Sodium Chloride (NS) 1,000 ml @ 200 mls/hr Q5H IV Last administered on 04:27; Admin Dose 200 MLS/HR; Start 04/02/17 at 19:05 Ondansetron HCl (Zofran Inj) 4 mg Q6H PRN IV NAUSEA AND/OR VOMITING; Start at 19:30 Magnesium Hydroxide (Milk Of Mag) 30 ml DAILY PRN PO CONSTIPATION; Start at 19:30 Hydralazine HCl (Apresoline) 10 mg Q4H PRN IV SBP>160; Start 04/02/17 at 19:30 Oxycodone HCl (Roxicodone) 2.5 mg Q4H PRN PO PAIN Last administered on 10:16; Admin Dose 2.5 MG; Start 04/04/17 at 11:30 Methocarbamol (Robaxin) 500 mg TID PO Last administered on 04/05/17 08:53; Admin Dose 500 MG; Start 04/04/17 at 13:00 MELODY UMANA Apr 05, 2017 11:44
--- NOTE | 2017-04-05 17:05 | RADRPT ---
PROCEDURE: US Abdomen and Retroperitoneum. CLINICAL INDICATION: Elevated liver function tests. TECHNIQUE: Multiple real-time images were acquired of the patient's abdomen and retroperitoneum ut ilizing a high resolution transducer. COMPARISON: None FINDINGS: The liver measures 13.8 cm and demonstrates a normal echogenicity. The gallbladder is filled with a moderate amount of bile. No shadowing echogenic stones or masses are seen in the gallbladder. The gallbladder wall is not thickened at 3.3 mm. No pericholecystic fluid is noted. The common bile duct measures 8.8 mm in diameter. The visualized portions of the proximal pancreas are unremarkable. The tail of the pancreas is not well visualized. The spleen is not well visualized. Antegrade flow is seen in the portal vein. Right kidney measures 9.6 cm.. Left kidney measures 10.0 cm. Both kidneys demonstrate a normal ech ogenicity. Mild bilateral hydronephrosis is identified. No solid masses or stones are observed. The visualized portions of the aorta inferior vena cava are unremarkable. Negative sonographic Cool's sign is noted. IMPRESSION: Minimal gallbladder wall thickening. Etiology is uncertain. If further characterization is needed CT or MRI could be helpful. Common bile duct that measures at the upper limit of normal for the patient's age. Mild bilateral hydronephrosis. Etiology is uncertain. If further characterization is needed CT is recommended. Tail of pancreas not well visualized. If characterization of this structure is needed repeat exam or CT/MRI is recommended. Spleen not well visualized. If characterization of this structure is needed repeat exam or CT/MRI is recommended. RPTAT: AA .Eliu Hoyos MD, Date Time Electronically viewed and signed by .Eliu Hoyos MD, MD on 04/05/2017 17:05 .P/
[2017-04-05 20:04] VITALS: BP 146/69; RESP 20
[2017-04-05] MEDS ORDERED: FUROSEMIDE 20 MG INJ IV ONE (23:30)
[2017-04-05] MEDS ORDERED: ALBUTEROL/IPRATROPIUM (NEB) 3 ML AMP HHN PRN (23:30)
--- NOTE | 2017-04-06 00:58 | RADRPT ---
PROCEDURE: XR Chest. CLINICAL INDICATION: Wheezing. Possible fluid overload. TECHNIQUE: 2 frontal views of the chest. COMPARISON: 04/03/2017. FINDINGS: Mild cardiomegaly is again seen. Atherosclerotic calcifications in the thoracic aorta. New mild to moderate atelectasis versus airspace disease, seen at the right costophrenic angle and at the left lung base, greater at the left lung base per The lungs are clear. No signs of pleural fluid or pneum othorax are seen. The osseous structures and soft tissues are unremarkable. IMPRESSION: New mild to moderate atelectasis versus airspace disease at the lung bases, left greater than right. RPTAT: [facility] Physician Isabel Date Time Electronically viewed and signed by Physician Isabel on 04/06/2017 00:58 RS/
[2017-04-06 02:00] VITALS: BP 127/60; RESP 18
[2017-04-06] MEDS: oxyCODONE 5 MG TAB PO PRN ×2 (02:12→20:25)
[2017-04-06] MEDS ORDERED: FUROSEMIDE 20 MG INJ IV ONE (03:00)
[2017-04-06] MEDS: SOD CHLORIDE 0.9% 1,000 ML IV SCH ×5 (05:52→20:14)
[2017-04-06 06:28] LABS: ABNORMAL IP MESSAGE 1; BASOPHILS % 0.3 % (0.0-2.0); EOSINOPHILS # 0.2 10^3/ul (0.0-0.5); EOSINOPHILS % 1.3 % (0.0-7.0); HEMATOCRIT 38.8 % (37.0-47.0); HEMOGLOBIN 12.7 g/dl (12.0-16.0); LYMPHOCYTES # 2.3 10^3/ul (0.8-2.9); LYMPHOCYTES % 18.8 % (15.0-51.0); MEAN CORPUSCULAR HEMOGLOBIN 30.6 pg (29.0-33.0); MEAN CORPUSCULAR HGB CONC 32.7 g/dl (32.0-37.0); MEAN CORPUSCULAR VOLUME 93.5 fl (82.0-101.0); MEAN PLATELET VOLUME 10.3 fl (7.4-10.4); MONOCYTE # 1.5 10^3/ul (0.3-0.9); MONOCYTES % 12.8 % (0.0-11.0); NEUTROPHILS % 65.9 % (39.0-77.0); PLATELET COUNT 227 10^3/UL (140-415); RED BLOOD COUNT 4.15 10^6/ul (4.20-5.40); RED CELL DISTRIBUTION WIDTH 13.8 % (11.5-14.5)
[2017-04-06 06:31] LABS: POSITIVE DIFF @See below
[2017-04-06 06:48] LABS: CALCIUM 8.6 mg/dl (8.4-10.2); CREATININE 0.9 mg/dl (0.44-1.00); MAGNESIUM 1.9 mg/dl (1.7-2.5); PHOSPHORUS 2.6 mg/dl (2.5-4.9); POTASSIUM 3.8 mmol/L (3.5-5.1)
[2017-04-06 07:39] VITALS: BP 149/67; RESP 18
[2017-04-06] MEDS: METHOCARBAMOL 500 MG TAB PO SCH ×3 (08:34→20:25)
[2017-04-06 14:06] VITALS: BP 130/57; RESP 18
[2017-04-06 20:48] VITALS: BP 125/60; RESP 20
[2017-04-07 02:00] VITALS: BP 132/69; RESP 20
[2017-04-07] MEDS: SOD CHLORIDE 0.9% 1,000 ML IV SCH ×3 (02:24→08:20)
[2017-04-07] MEDS: MAGNESIUM HYDROXIDE 30ML CUP PO PRN (05:42)
[2017-04-07 08:16] VITALS: BP 137/62; RESP 16
[2017-04-07] MEDS: METHOCARBAMOL 500 MG TAB PO SCH (08:22)
[2017-04-07 10:23] LABS: ABNORMAL IP MESSAGE 1; BASOPHILS % 0.1 % (0.0-2.0); EOSINOPHILS # 0.2 10^3/ul (0.0-0.5); EOSINOPHILS % 2.1 % (0.0-7.0); HEMATOCRIT 37.4 % (37.0-47.0); HEMOGLOBIN 12.2 g/dl (12.0-16.0); LYMPHOCYTES # 1.2 10^3/ul (0.8-2.9); LYMPHOCYTES % 11.8 % (15.0-51.0); MEAN CORPUSCULAR HEMOGLOBIN 30.6 pg (29.0-33.0); MEAN CORPUSCULAR HGB CONC 32.6 g/dl (32.0-37.0); MEAN CORPUSCULAR VOLUME 93.7 fl (82.0-101.0); MEAN PLATELET VOLUME 9.9 fl (7.4-10.4); MONOCYTE # 1.5 10^3/ul (0.3-0.9); MONOCYTES % 14.7 % (0.0-11.0); PLATELET COUNT 227 10^3/UL (140-415); RED BLOOD COUNT 3.99 10^6/ul (4.20-5.40); WHITE BLOOD COUNT 10.4 10^3/ul (4.8-10.8)
[2017-04-07 10:24] LABS: POSITIVE DIFF @See below
[2017-04-07 10:48] LABS: ALBUMIN 2.5 g/dl (3.3-4.9); ALBUMIN/GLOBULIN RATIO 0.86; BILIRUBIN,INDIRECT 0.4 mg/dl (0-1.1); BILIRUBIN,TOTAL 0.4 mg/dl (0.2-1.3); CALCIUM 8.7 mg/dl (8.4-10.2); CREATININE 0.78 mg/dl (0.44-1.00); POTASSIUM 4.1 mmol/L (3.5-5.1); TOTAL PROTEIN 5.4 g/dl (6.1-8.1)
--- NOTE | 2017-04-07 13:42 | PN ---
Date/Time of Note Date/Time of Note DATE: 04/07/17 TIME: 13:40 Assessment/Plan VTE Prophylaxis VTE Prophylaxis Intervention: heparin, LMWH Lines/Catheters IV Catheter Type (from Nrs): Peripheral IV Urinary Cath still in place: Yes Reason Cath still needed: urinary retention Assessment/Plan Chief Complaint/Hosp Course 87 yo female without significant PMH who presented after mechanical fall. Found to have mild rhabdomyolysis and physical deconditioning. Pending discharge to rehab Rhabdomyolysis: - CK trending down nicely, no renal impairment Physical deconditioning - PT/OT Stable for discharge to rehab or SNF Problems: Subjective 24 Hr Interval Summary Free Text/Dictation Patient feels generally well Still some mild headache from fall No other complaints Exam/Review of Systems Vital Signs Vitals Vital Signs Date Time Temp Pulse Resp B/P Pulse Ox O2 Delivery O2 Flow Rate FiO2 04/07/17 08:16 99.0 89 16 137/62 98 04/07/17 07:34 2.0 04/07/17 06:10 Nasal Cannula Intake and Output 04/06/17 04/06/17 04/07/17 15:00 23:00 07:00 Intake Total 1000 ml 1920 ml 2240 ml Output Total 1600 ml 400 ml Balance 1000 ml 320 ml 1840 ml Exam Hematoma to face noted Clear lungs Flat neck veins RRR No peripheral edema Results Result Diagram: 04/07/17 0944 04/07/17 0944 Results 24 hrs Laboratory Tests Test 04/07/17 09:44 White Blood Count 10.4 Red Blood Count 3.99 L Hemoglobin 12.2 Hematocrit 37.4 Mean Corpuscular Volume 93.7 Mean Corpuscular Hemoglobin 30.6 Mean Corpuscular Hemoglobin Concent 32.6 Red Cell Distribution Width 14.0 Platelet Count 227 Mean Platelet Volume 9.9 Neutrophils % 70.0 Lymphocytes % 11.8 L Monocytes % 14.7 H Eosinophils % 2.1 Basophils % 0.1 Nucleated Red Blood Cells % 0.0 Neutrophils # (Manual) 7 Lymphocytes # 1.2 Monocytes # 1.5 H Eosinophils # 0.2 Basophils # 0.0 Nucleated Red Blood Cells # 0.0 Sodium Level 138 Potassium Level 4.1 Chloride Level 105 Carbon Dioxide Level 23 Anion Gap 14 Blood Urea Nitrogen 13 Creatinine 0.78 Glucose Level 133 Calcium Level 8.7 Total Bilirubin 0.4 Direct Bilirubin 0.00 Indirect Bilirubin 0.4 Aspartate Amino Transf (AST/SGOT) 83 H Alanine Aminotransferase (ALT/SGPT) 92 H Alkaline Phosphatase 107 Creatine Kinase 1238 H Total Protein 5.4 L Albumin 2.5 L Globulin 2.90 Albumin/Globulin Ratio 0.86 Medications Medications Current Medications Ondansetron HCl (Zofran Inj) 4 mg Q6H PRN IV NAUSEA AND/OR VOMITING; Start at 19:30 Magnesium Hydroxide (Milk Of Mag) 30 ml DAILY PRN PO CONSTIPATION Last administered on 04/07/17 05:42; Admin Dose 30 ML; Start 04/02/17 at 19:30 Hydralazine HCl (Apresoline) 10 mg Q4H PRN IV SBP>160; Start 04/02/17 at 19:30 Oxycodone HCl (Roxicodone) 2.5 mg Q4H PRN PO PAIN Last administered on 20:25; Admin Dose 2.5 MG; Start 04/04/17 at 11:30 Enoxaparin Sodium (Lovenox) 30 mg DAILY SC ; Start 04/07/17 at 13:00 LIZANDRO RAMON MD Apr 07, 2017 13:42
[2017-04-07] MEDS: ENOXAPARIN 30 MG/0.3 ML SYG SC SCH (13:45)
[2017-04-07 15:29] VITALS: BP 132/63; RESP 16
[2017-04-07 19:53] VITALS: BP 152/66; RESP 20
[2017-04-07] MEDS: oxyCODONE 5 MG TAB PO PRN (23:39)
[2017-04-08 02:06] VITALS: BP 126/67; RESP 20
[2017-04-08 08:48] VITALS: BP 162/72; RESP 20
[2017-04-08] MEDS: ENOXAPARIN 30 MG/0.3 ML SYG SC SCH (09:23)
[2017-04-08 10:44] LABS: ALBUMIN 2.7 g/dl (3.3-4.9); ALBUMIN/GLOBULIN RATIO 0.96; BILIRUBIN,INDIRECT 0.6 mg/dl (0-1.1); BILIRUBIN,TOTAL 0.6 mg/dl (0.2-1.3); CALCIUM 9.3 mg/dl (8.4-10.2); CREATININE 0.85 mg/dl (0.44-1.00); POTASSIUM 4.4 mmol/L (3.5-5.1); TOTAL PROTEIN 5.5 g/dl (6.1-8.1)
--- NOTE | 2017-04-08 14:43 | PN ---
Date/Time of Note Date/Time of Note DATE: 04/08/17 TIME: 14:41 Assessment/Plan VTE Prophylaxis VTE Prophylaxis Intervention: SCD's Lines/Catheters IV Catheter Type (from Nrsg): Peripheral IV Urinary Cath still in place: Yes Reason Cath still needed: other (indicate) Assessment/Plan Assessment/Plan 87 yo female without significant PMH who presented after mechanical fall. Found to have mild rhabdomyolysis and physical deconditioning. Pending discharge to rehab Rhabdomyolysis: - CK trending down nicely, no renal impairment DC hewitt Physical deconditioning - PT/OT Stable for discharge to rehab or SNF Subjective 24 Hr Interval Summary Free Text/Dictation Pt without complaint Exam/Review of Systems Vital Signs Vitals Vital Signs Date Time Temp Pulse Resp B/P Pulse Ox O2 Delivery O2 Flow Rate FiO2 04/08/17 08:48 98.9 86 20 162/72 96 04/08/17 01:17 2.0 04/07/17 09:00 Nasal Cannula Intake and Output 04/07/17 04/07/17 04/08/17 15:00 23:00 07:00 Intake Total 750 ml 840 ml 720 ml Output Total 350 ml Balance 750 ml 490 ml 720 ml Exam nad no mrg lungs clear abd soft no rashes +forehead abraisons CK better Results Result Diagram: 04/07/17 0944 04/08/17 0840 Results 24 hrs Laboratory Tests Test 04/08/17 08:40 Sodium Level 136 Potassium Level 4.4 Chloride Level 107 Carbon Dioxide Level 25 Anion Gap 8 Blood Urea Nitrogen 13 Creatinine 0.85 Glucose Level 92 # Calcium Level 9.3 Total Bilirubin 0.6 Direct Bilirubin 0.00 Indirect Bilirubin 0.6 Aspartate Amino Transf (AST/SGOT) 84 H Alanine Aminotransferase (ALT/SGPT) 96 H Alkaline Phosphatase 105 Creatine Kinase 922 H Total Protein 5.5 L Albumin 2.7 L Globulin 2.80 Albumin/Globulin Ratio 0.96 Medications Medications Current Medications Ondansetron HCl (Zofran Inj) 4 mg Q6H PRN IV NAUSEA AND/OR VOMITING; Start at 19:30 Magnesium Hydroxide (Milk Of Mag) 30 ml DAILY PRN PO CONSTIPATION Last administered on 04/07/17t 05:42; Admin Dose 30 ML; Start 04/02/17 at 19:30 Oxycodone HCl (Roxicodone) 2.5 mg Q4H PRN PO PAIN Last administered on 23:39; Admin Dose 2.5 MG; Start 04/04/17 at 11:30 Enoxaparin Sodium (Lovenox) 30 mg DAILY SC Last administered on 04/08/17 09:23 ; Admin Dose 30 MG; Start 04/07/17 at 13:00 PATRICIO WHARTON MD Apr 08, 2017 14:42
[2017-04-08] MEDS: MAGNESIUM HYDROXIDE 30ML CUP PO PRN (15:22)
[2017-04-08 15:42] VITALS: BP 149/72; RESP 20
[2017-04-08] MEDS: oxyCODONE 5 MG TAB PO PRN (17:54)
[2017-04-08 20:19] VITALS: BP 149/82; RESP 22
[2017-04-09 02:29] VITALS: BP 147/66; RESP 16
[2017-04-09] MEDS: oxyCODONE 5 MG TAB PO PRN (05:42)
[2017-04-09] MEDS: MAGNESIUM HYDROXIDE 30ML CUP PO PRN (06:09)
[2017-04-09 06:32] LABS: ALBUMIN 2.7 g/dl (3.3-4.9); ALBUMIN/GLOBULIN RATIO 0.87; BILIRUBIN,INDIRECT 0.4 mg/dl (0-1.1); BILIRUBIN,TOTAL 0.4 mg/dl (0.2-1.3); CALCIUM 9.4 mg/dl (8.4-10.2); CREATININE 0.89 mg/dl (0.44-1.00); POTASSIUM 4.1 mmol/L (3.5-5.1); TOTAL PROTEIN 5.8 g/dl (6.1-8.1)
[2017-04-09 08:08] VITALS: BP 128/62; RESP 16
[2017-04-09] MEDS: ENOXAPARIN 30 MG/0.3 ML SYG SC SCH (08:29)
[2017-04-09 14:00] VITALS: BP 135/83; RESP 20
--- NOTE | 2017-04-09 14:46 | DS ---
Date/Time of Note Date/Time of Note DATE: 04/09/17 TIME: 14:42 Discharge Summary Admission/Discharge Info Admit Date/Time Apr 02, 2017 at 18:30 Discharge Date/Time Discharge Diagnosis rhabdomyolysis, deconditioning Patient Condition: Stable Procedures 8.17 CT face IMPRESSION: 1. No acute fracture. 2. The bilateral globes are intact without orbital hematoma. 3. Right lateral facial / zygomatic as well as right frontal scalp hematoma. CT Cspine: no fracture MRI brain IMPRESSION: 1. No evidence of acute intracranial pathology. 2. Mild diffuse volume loss with moderate microvascular ischemic disease. 8.20Abd US IMPRESSION: Minimal gallbladder wall thickening. Etiology is uncertain. If further characterization is needed CT or MRI could be helpful. Common bile duct that measures at the upper limit of normal for the patient's age. Mild bilateral hydronephrosis. Etiology is uncertain. If further characterization is needed CT is recommended. Tail of pancreas not well visualized. If characterization of this structure is needed repeat exam or CT/MRI is recommended. Spleen not well visualized. If characterization of this structure is needed repeat exam or CT/MRI is recommended. Hx of Present Illness Patient is a 87-year-old female who presents to [facility] after suffering a slip in the shower and found down by her son when he was visiting. Patient lives alone but does have a high functioning capacity. Patient cleans, dresses herself and has food delivered to her house as well as 1 of her 4 children who also bring food to her. Patient has a large facial bruise as well as a very superficial laceration on her left great toe and some mild bruising on her wrists bilaterally. Patient is extremely hard of hearing however patient is alert and oriented 4 and her sons are at bedside to provide information as well. According to patient's son he found her down on the side of the tub and states that initially the patient did not remember who he was, however she is back to her normal mentation at this time. Patient states that she fell but does not know if she lost consciousness. Patient has an unknown downtime and is found in rhabdomyolysis. Patient has good outpatient follow-up and is not taking any medications and is not diagnosed with any diseases except for occasional migraines. Patient's most recent blood work at her primary care physician was a few weeks ago.Patient denies chest pain, shortness of breath, nausea,vomiting, weakness, confusion Hospital Course 87 yo female without significant PMH who presented after mechanical fall. Found to have mild rhabdomyolysis and physical deconditioning. Rhabdo resolved with IVFs. Extensive imaging without evidence of fracture. Home Meds No Active Prescriptions or Reported Meds Follow-up Plan physician at [facility] Primary Care Provider Not On Staff Doctor Time spent on discharge: > 30 minutes Pending Labs Laboratory Tests Test 04/09/17 05:35 Sodium Level 138mmol/L (135-144) Potassium Level 4.1mmol/L (3.5-5.1) Chloride Level 108mmol/L (97-110) Carbon Dioxide Level 25mmol/L (21-31) Anion Gap 9 (8-16) Blood Urea Nitrogen 15mg/dl (7-20) Creatinine 0.89mg/dl (0.44-1.00) Glucose Level 103mg/dl (70-220) Calcium Level 9.4mg/dl (8.4-10.2) Total Bilirubin 0.4mg/dl (0.2-1.3) Direct Bilirubin 0.00mg/dl (0.00-0.20) Indirect Bilirubin 0.4mg/dl (0-1.1) Aspartate Amino Transf (AST/SGOT) 69IU/L (15-46) Alanine Aminotransferase (ALT/SGPT) 106IU/L (13-69) Alkaline Phosphatase 122IU/L (42-121) Creatine Kinase 357IU/L (23-200) Total Protein 5.8g/dl (6.1-8.1) Albumin 2.7g/dl (3.3-4.9) Globulin 3.10g/dl (1.3-3.2) Albumin/Globulin Ratio 0.87 PATRICIO WHARTON MD Apr 09, 2017 14:46
== END 2017-04-09 17:10 | DRG 565 ==
LOC: E/R 13:45 → MS2 18:30
PROVIDERS: ADMIT Internal Medicine; ATTEND Internal Medicine
DX: T79.6XXA Traumatic ischemia of muscle, initial encounter (principal); N17.9 Acute kidney failure, unspecified; S00.03XA Contusion of scalp, initial encounter; W18.2XXA Fall in (into) shower or empty bathtub, initial encounter; Y93.E1 Activity, personal bathing and showering; H91.90 Unspecified hearing loss, unspecified ear; S09.90XA Unspecified injury of head, initial encounter; S80.10XA Contusion of unspecified lower leg, initial encounter; S00.11XA Contusion of right eyelid and periocular area, initial encounter; N18.9 Chronic kidney disease, unspecified; R51 Headache; R53.81 Other malaise
CPT/HCPCS: 70450; 70486; 70551; 71010; 72125; 73070; 73620; 76700; 80048; 80053; 80076; 80307; 81001; 82550; 83735; 84100; 85025; 85610; 85730; 93306; 94664; 97116; 97162; 97166; 97530; J1940; J1650; J2270; J7030

== ENCOUNTER 2018-12-14 22:02 | Inpatient (IN) | payer BC ==
[~2018-12-14] VITALS: Ht 152.4 cm; Wt 75.0 kg
[2018-12-14] MEDS ORDERED: SODIUM CHLORIDE 0.9% 1L BAG IV* STA (22:19)
[2018-12-14] MEDS ORDERED: CEFTRIAXONE 1 GM/50 ML (PMX) 50 ML IVPB STA (22:19)
--- NOTE | 2018-12-14 22:28 | ERD ---
ER Documentation Chief Complaint Chief Complaint ALOC X'S 4 HRS, STATES SHE IS DIZZY, COLD; C/O VOMITING; STRONG URINE ODOR HPI 88-year-old female who presents to the emergency room with history provided by her son. It appears over the past 12 to 24 hours the patient has been increasingly confused, more lethargic and with decreased responsiveness. Patient had no focal deficits that were reported by family members. Daughter has reported some strong odor from her urine over the past 24 hours. Patient is describing of occasional dizziness, nonbloody nonbilious emesis. She denies any headache chest pain shortness of breath or abdominal pain. ROS All systems reviewed and are negative except as per history of present illness. Medications Home Meds No Active Prescriptions or Reported Meds Allergies Allergies: Coded Allergies: Penicillins (Unverified Allergy, Unknown, 12/14/18) Sulfa (Sulfonamide Antibiotics) (Unverified Allergy, Unknown, 12/14/18) PMhx/Soc History of Surgery: No Anesthesia Reaction: No Hx Neurological Disorder: No Hx Respiratory Disorders: No Hx Cardiac Disorders: No Hx Psychiatric Problems: No Hx Miscellaneous Medical Probl: Yes (see PT note) Hx Alcohol Use: No Hx Substance Use: No Hx Tobacco Use: No FmHx Family History: No diabetes Physical Exam Vitals Vital Signs Date Temp Pulse Resp B/P (MAP) Pulse Ox O2 O2 Flow FiO2 Time Delivery Rate 12/15/18 100.6 89 18 113/59 100 Room Air 01:29 (77) 12/14/18 100.1 22:47 12/14/18 100.1 100 22 142/67 100 22:08 (92) Physical Exam General: Elderly female with slightly decreased responsiveness, following commands command, Answering simple questions Head: Normocephalic, atraumatic. Eyes: Pupils equally reactive, EOM intact ENT: Dry mucous membranes Neck: Supple, no lymphadenopathy Respiratory: Lungs clear bilaterally, no distress Cardiovascular: RRR, no murmurs, rubs, or gallops Abdominal: Soft, non-tender, non-distended, no peritoneal signs : Deferred MSK: No edema, no unilateral swelling, generalized weakness but moving all 4 extremities Neurologic: Limited examination but the patient is alert, conversive, moving all extremities without focal deficit. Generalized weakness is noted Skin: No rash Psych: Normal mood Result Diagram: 4223212/14/18 2233 Results 24 hrs Laboratory Tests Test 12/14/18 22:33 12/14/18 22:36 12/14/18 23:45 12/15/18 00:45 White Blood Count 29.7 10^3/ul Red Blood Count 4.95 10^6/ul Hemoglobin 15.0 g/dl Hematocrit 46.3 % Mean Corpuscular 93.5 fl Volume Mean Corpuscular 30.3 pg Hemoglobin Mean Corpuscular 32.4 g/dl Hemoglobin Concent Red Cell 13.6 % Distribution Width Platelet Count 240 10^3/UL Mean Platelet 10.4 fl Volume Immature 1.400 % Granulocytes % Neutrophils % % Segmented 89 % Neutrophils % (Manual) Band Neutrophils % 2 % (Manual) Lymphocytes % % Lymphocytes % 3 % (Manual) Monocytes % % Monocytes % 6 % (Manual) Eosinophils % % Basophils % % Nucleated Red 0.0 /100WBC Blood Cells % Immature 0.430 10^3/ul Granulocytes # Neutrophils # 10^3/ul Neutrophils # 26.6 10^3/ul (Manual) Band Neutrophils # 0.5 10^3/ul Lymphocytes 0.8 10^3/ul (Manual) Lymphocytes # 10^3/ul Monocytes # 10^3/ul Monocytes # 1.7 10^3/ul (Manual) Eosinophils # 10^3/ul Basophils # 10^3/ul Nucleated Red 10^3/ul Blood Cells # Platelet Estimate NORMAL Prothrombin Time 13.5 Sec Prothrombin Time 1.1 Ratio INR International 1.02 Normalized Ratio Activated 27.[address] Time Sodium Level 139 mmol/L Potassium Level 4.7 mmol/L Chloride Level 105 mmol/L Carbon Dioxide 22 mmol/L Level Anion Gap 12 Blood Urea 17 mg/dl Nitrogen Creatinine 1.13 mg/dl Est Glomerular mL/min Filtrat Rate mL/min Glucose Level 194 mg/dl Calcium Level 10.6 mg/dl Total Bilirubin 0.7 mg/dl Direct Bilirubin 0.00 mg/dl Indirect Bilirubin 0.7 mg/dl Aspartate Amino 30 IU/L Transf (AST/SGOT) Alanine 38 IU/L Aminotransferase ( ALT/SGPT) Alkaline 124 IU/L Phosphatase Troponin I < 0.012 ng/ml Total Protein 7.8 g/dl Albumin 4.2 g/dl Globulin 3.60 g/dl Albumin/Globulin 1.16 Ratio POC Venous Lactate 2.8 mmol/L Urine Color YELLOW Urine Clarity SLIGHTLY CLOUDY Urine pH 5.0 Urine Specific 1.016 [place] Urine Ketones TRACE mg/dL Urine Nitrite POSITIVE mg/dL Urine Bilirubin NEGATIVE mg/dL Urine Urobilinogen NEGATIVE mg/dL Urine Leukocyte NEGATIVE Carmenza/ul Esterase Urine Microscopic 10 /HPF RBC Urine Microscopic 2 /HPF WBC Urine Squamous FEW /HPF Epithelial Cells Urine Bacteria MODERATE /HPF Urine Mucus FEW /HPF Urine Hemoglobin 1+ mg/dL Urine Glucose NEGATIVE mg/dL Urine Total NEGATIVE mg/dl Protein Lactic Acid Level 4.2 mmol/L Test 12/15/18 00:55 POC Venous Lactate 3.2 mmol/L Current Medications Medications Dose Sig/Maricarmen Start Time Status Last (Trade) Ordered Route PRN Stop Time Admin Dose Reason Admin Sodium 2,250 ml BOLUS OVER 2 12/14/18 DC 12/14/18 Chloride HOURS STAT 22: 22:49 (NS) IV* 12/14/18 22:21 Ceftriaxone 50 ml @ ONCE STAT 12/14/18 DC Sodium 100 mls/hr IVPB 22:19 12/14/18 22:25 650 mg ONCE ONCE 12/14/18 DC 12/14/18 Acetaminophen PO 22:30 22:47 (Tylenol 12/14/18 22:32 Tab) Aztreonam 50 ml @ ONCE ONCE 12/14/18 DC 100 mls/hr IVPB 22:30 12/14/18 22:46 150 ml @ ONCE ONCE 12/14/18 DC 12/14/18 Levofloxacin/ 100 mls/hr IVPB 23:00 12/15/18 22:56 Dextrose 00:29 Ondansetron 4 mg ER BRIDGE 12/15/18 HCl (Zofran PRN IV 01:30 12/16/18 Inj) NAUSEA/VOMITI 01:29 NG 650 mg ER BRIDGE 12/15/18 Acetaminophen PRN PO 01:30 12/16/18 (Tylenol .MILD PAIN 01:29 Tab) 1-3 OR TEMP IV Flush 3 ml PER 12/15/18 (NS 3 ml) PROTOCOL IV 01:30 Ondansetron 4 mg Q6H PRN 12/15/18 HCl (Zofran IV 01:30 Inj) NAUSEA/VOMITI NG 650 mg Q6H PRN 12/15/18 Acetaminophen PO .PAIN 1-3 01:30 (Tylenol OR TEMP Tab) Aztreonam 50 ml @ Q12 IVPB 12/15/18 100 mls/hr 09:00 Procedures/MDM EKG, MONITORS, & DIAGNOSTIC IMAGING: EKG: I reviewed and interpreted a 12-lead EKG. Rhythm: Normal sinus rhythm ST Changes: No contiguous ST segment elevations T waves: No contiguous T wave inversions Impression: No evidence of acute cardiac ischemia Chest x-ray: I reviewed and interpreted a 1 view of the chest Mediastinum: No enlargement Cardiac silhouette: No cardiomegaly Airspace: Clear lung suazo bilaterally without evidence of pneumothorax Bones: No evidence of fracture CT brain: NO acute process CT a/p IMPRESSION: 1. 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 2. Status post previous small large bowel resections with unremarkable anastomotic lines. 3. Mild diverticulosis of the descending colon but no evidence of diverticulitis. 4. Multiple left parapelvic renal cysts. No calcified urinary calculi or obstructive uropathy. 5. Small consolidation posterior left lower lobe may all be due to atelectasis. Pneumonia cannot be excluded. LAB INTERPRETATION: I reviewed the laboratory testing and it shows leukocytosis, lactic acid eleva tion and nitrate positive urine MEDICAL DECISION MAKING: Patient presents with a low-grade temperature, tachycardia, altered mental status with a foul odor to the urine. Most likely causes urinary tract infection, sepsis screening will be initiated. Patient exhibits no focal deficits to be suggestive of stroke. CT brain given age would be appropriate to rule out mass or hemorrhage. Fluid resuscitation appropriate. Patient appears to have some mild dehydration. Empiric antibiotics additionally appropriate. ER COURSE: * The patient had a code sepsis initiated. The patient was given empiric Levaquin based on allergy to penicillin that was described as severe. Levaquin would be appropriate monotherapy and will treat urinary tract infection and possible community acquired pneumonia though no signs of pneumonia clinically. * Patient received a 30 cc/kg bolus of normal saline. Antipyretics. Blood cultures prior to antibiotics. * The patient's lactic acid has remained elevated but the patient's blood pressure continues to be well-appearing, continue to trend with fluid resuscitation. Patient is resting comfortably and asymptomatic currently. * CT of the abdomen pelvis was added to rule out acute intra-abdominal process but is negative as described above. * Laboratory testing suggest urinary tract infection. Empiric antibiotics appropriate. CONSULTATION: None DISPOSITION PLAN: Medical surgical admission for management of urinary tract infection, sepsis Accepting care team and consultations: I discussed the current laboratory data, diagnostic imaging and emergency care p roxi. Admitting team: Dr. Juares Admitting team indication: Insurance directed Sepsis Documentation: Patient's infectious symptoms have not stabilized and the patient is at risk of rapid decompensation. The patient will be admitted for careful hydration, antibiotic therapy, and infectious source control. SEVERE SEPSIS CRITERIA: Infectious source: Urinary tract infection End organ damage indicated by: [Lactate > 2.0 mmol/L SEPSIS MANAGEMENT Time of recognition of sepsis: Upon MD assessment. Time of recognition of severe sepsis: 2235. Time of recognition of septic shock: 45 3 HOUR BUNDLE Blood cultures x 2 before broad-spectrum antibiotics: Yes 30 ml/kg NS bolus completed Initial lactate 2.8 Repeat lactate 3.2 SEPTIC SHOCK ASSESSMENT: YES lactic acid > 4.0 at 00 45 however [id number] lactate at 00 55 was 3.2. Consider possible prolonged lab time or tourniquet time as the [id number] lactic acid is reassuring and drawn appropriately. Unclear variance at this saranya e. No persistent hypotension (SBP < 90 or 40 mmHg drop, MAP < 65) despite 30 mL/kg IV fluid bolus VOLUME REASSESSMENT FOR SEPTIC SHOCK: Reevaluation Time: 2:30 AM Temperature of 100.6 heart rate 89 respiratory rate 18 blood pressure 113/59 pulse 100% on room air Heart regular rate & rhythm Lungs no crackles Skin warm & dry Cap Refill less than 2 seconds Peripheral pulses radially present PERSISTENT HYPOTENSION TREATMENT: Comfort care no Central line not Required Vasopressor started not required I considered further perfusion assessment with CVP measurement, SCVO2, bedside ultrasound volume assessment, passive leg raise, trial of further fluid bolus. And proceeded with 30 ml/kg fluid bolus of NSS, broad spectrum antibiotics, and admission. CRITICAL CARE Critical care time 35 minutes Emergent fluid management while maintaining close respiratory support. Provision of immediate and broad-spectrum antibiotic therapy. Simultaneous assessment for possible sources in order to direct targeted therapy. Consideration for invasive and chemical support to prevent cardiopulmonary c ollapse. Critical care time is independent of procedures performed. Departure Diagnosis: Primary Impression: Urinary tract infection Urinary tract infection type: acute cystitis Hematuria presence: without hematuria Qualified Codes: N30.00 - Acute cystitis without hematuria Additional Impressions: Encephalopathy acute Septic shock Condition: Stable GAIL JORDAN MD Dec 14, 2018 22:28
[2018-12-14] MEDS ORDERED: AZTREONAM 1 GM/NS (PMX) 50 ML IVPB ONE (22:30)
[2018-12-14] MEDS ORDERED: ACETAMINOPHEN 325 MG TAB PO ONE (22:30)
[2018-12-14] MEDS ORDERED: LEVOFLOXACIN 750MG/D5W (PMX) 150 ML IVPB ONE (23:00)
[2018-12-15] VITALS (10 sets, daily range): BP systolic 100–196; BP diastolic 58–87; PULSE 72–80; RESP 17–20; Ht 152.4 cm; Wt 75.0 kg
--- NOTE | 2018-12-15 01:20 | HP ---
Date/Time of Note Date/Time of Note DATE: 12/15/18 TIME: 01:20 Assessment/Plan VTE Prophylaxis SCD applied (from Nsg): Yes Pharmacological prophylaxis: NA/contraindicated Pharm contraindication: low risk/ambulating Lines/Catheters IV Catheter Type (from Nrsg): Saline Lock Assessment/Plan Hospital Course This is a 88-year-old female being admitted to the telemetry floor for: #1 severe sepsis: Likely multifactorial secondary to underlying UTI, cellulitis. Given patient's penicillin and sulfa allergies at the current time will continue the patient on aztreonam and vancomycin IV per pharmacy. Will await culture results. Will check ESR CRP. Leukocytosis of 29,000. Trend lactic acid levels. #2 urinary tract infection: Await urine culture results, aztreonam and Vanco at the current time #3 suspect right lower extremity cellulitis: Patient does have erythema redness and warmth on her right ankle. She is nontender to touch in that area. Will check bilateral lower extremity Dopplers to rule out DVT. I will order an x-ray of the right foot. Currently on antibiotics as per #1. #4 obesity: We will check hemoglobin A1c, lipid panel, TSH #5 DVT GI prophylaxis: Heparin subcu, no GI prophylaxis indicated Further treatment strategy will be implemented as per the clinical course. Result Diagram: 12/14/18223212/14/182232 Results 24hrs Laboratory Tests Test 12/14/18 22:33 12/14/18 22:36 12/14/18 23:45 12/15/18 00:55 White Blood Count 29.7 #H Red Blood Count 4.95 # Hemoglobin 15.0 # Hematocrit 46.3 # Mean Corpuscular 93.5 Volume Mean Corpuscular 30.3 Hemoglobin Mean Corpuscular 32.4 Hemoglobin Concen t Red Cell 13.6 Distribution Width Platelet Count 240 Mean Platelet 10.4 Volume Immature 1.400 H Granulocytes % Neutrophils % Segmented 89 H Neutrophils % (Manual) Band Neutrophils 2 % (Manual) Lymphocytes % Lymphocytes % 3 L (Manual) Monocytes % Monocytes % 6 (Manual) Eosinophils % Basophils % Nucleated Red 0.0 Blood Cells % Immature 0.430 H Granulocytes # Neutrophils # Neutrophils # 26.6 H (Manual) Band Neutrophils 0.5 # Lymphocytes 0.8 (Manual) Lymphocytes # Monocytes # Monocytes # 1.7 H (Manual) Eosinophils # Basophils # Nucleated Red Blood Cells # Platelet Estimate NORMAL Prothrombin Time 13.5 Prothrombin Time 1.1 Ratio INR International 1.02 Normalized Ratio Activated 27.5 Partial Thrombopl ast Time Sodium Level 139 Potassium Level 4.7 Chloride Level 105 Carbon Dioxide 22 Level Anion Gap 12 Blood Urea 17 Nitrogen Creatinine 1.13 H Est Glomerular Filtrat Rate mL/min Glucose Level 194 Calcium Level 10.6 H Total Bilirubin 0.7 Direct Bilirubin 0.00 Indirect 0.7 Bilirubin Aspartate Amino 30 Transf (AST/SGOT) Alanine 38 Aminotransferase (ALT/SGPT) Alkaline 124 H Phosphatase Troponin I < 0.012 Total Protein 7.8 Albumin 4.2 Globulin 3.60 H Albumin/Globulin 1.16 Ratio POC Venous 2.8 *H 3.2 *H Lactate Urine Color YELLOW Urine Clarity SLIGHTLY CLOUDY A Urine pH 5.0 Urine Specific 1.016 [place] Urine Ketones TRACE A Urine Nitrite POSITIVE A Urine Bilirubin NEGATIVE Urine NEGATIVE Urobilinogen Urine Leukocyte NEGATIVE Esterase Urine Microscopic 10 H RBC Urine Microscopic 2 WBC Urine Squamous FEW Epithelial Cells Urine Bacteria MODERATE Urine Mucus FEW A Urine Hemoglobin 1+ H Urine Glucose NEGATIVE Urine Total NEGATIVE Protein HPI/ROS Admit Date/Time Admit Date/Time Hx of Present Illness Chief complaint: Confused, lethargic Following history was obtained from the ED physician documentation, as patient was not able to provide adequate history. This is a 88-year-old female who presents to the emergency room with history provided by her son. It appears over the past 12 to 24 hours the patient has been increasingly confused, more lethargic and with decreased responsiveness. Patient had no focal deficits that were reported by family members. Daughter has reported some strong odor from her urine over the past 24 hours. Patient is describing of occasional dizziness, nonbloody nonbilious emesis. She denies any headache chest pain shortness of breath or abdominal pain. Upon examination of the patient at the bedside the patient is alert and awake and very pleasant. Allergies: Penicillin, sulfa Medications: None ROS Const: As per HPI Eyes : No pain discharge or redness or change in visual acuity ENT: No pain, sore throat, congestion, congestion, dysphagia or discharge Respiratory: No shortness of breath, cough, sputum, wheezing, or pleuritic pain Cardiovascular: No chest pain, palpitation, PND, or edema GI : no change in appetite, abdominal pain, nausea, vomiting, diarrhea, constipation, or change in the color his stool Genitourinary: No dysuria, hematuria, flank pain , discharge or CVA tenderness Musculoskeletal: No joint pain, back pain, neck pain, restricted range of motion in neck or joints Skin: No rash, bruising or hives Neuro: No headache, dizziness, syncope, seizure, focal weakness Endocrine: No polyuria, polydipsia, temperature intolerance Psych: No hallucination, depression, anxiety or suicidal ideation PMH/Family/Social Past Medical History Occasional migraines Medications Current Medications Ondansetron HCl (Zofran Inj) 4 mg ER BRIDGE PRN IV NAUSEA/VOMITING; Start 12/15/18 at 01:30; Stop 12/16/18 at 01:29 Acetaminophen (Tylenol Tab) 650 mg ER BRIDGE PRN PO .MILD PAIN 1-3 OR TEMP; Start 12/15/18 at 01:30; Stop 12/16/18 at 01:29 Coded Allergies: Penicillins (Unverified Allergy, Unknown, 12/14/18) Sulfa (Sulfonamide Antibiotics) (Unverified Allergy, Unknown, 12/14/18) Past Surgical History History of colostomy in the past Family History Significant Family History: no pertinent family hx Social History Alcohol Use: none Smoking Status: Never smoker Drug Use: none Exam/Review of Systems Vital Signs Vitals Vital Signs Date Temp Pulse Resp B/P (MAP) Pulse Ox O2 O2 Flow FiO2 Time Delivery Rate 12/14/18 100.1 22:47 12/14/18 100 22 142/67 100 22:08 (92) Exam Exam General: Patient is a pleasant female currently lying in bed in no acute distress, she is easily arousable and pleasant, she is hard of hearing HEENT: Atraumatic, normocephalic. The pupils are equal, round and reactive. Extraocular motor are intact Neck: Supple with full range of motion. No rigidity or meningismus Chest: Nontender Lungs: Clear to auscultation bilaterally no crackles rales or wheezing Heart: Normal S1-S2, Regular rhythm and rate. No murmur, S3, or S4 Abdomen: Soft , nontender, nondistended , bowel sounds are present. No guarding no rebound tenderness , No masses or organomegaly. No costovertebral temporal angle mass Extremities: Right lower extremity warmth and redness noted at the medial ankle Skin: Right lower extremity redness noted at the medial ankle, warmth, erythema, nontender to touch Neurologic: Normal mental status, speech normal, cranial nerves II through XII are intact, motor and sensory are intact, Additional Comments PROCEDURE: XR Chest. CLINICAL INDICATION: Chest pain. Possible sepsis TECHNIQUE: Portable AP semi erect view of the chest was obtained. COMPARISON: 04/06/2017 FINDINGS: The cardiomediastinal silhouette is within normal limits. Mild left lower lobe subsegmental atelectasis is present. The right lung is clear. There is no evidence for pleural effusion, pneumothorax or pulmonary vascular congestion. Diffuse decreased mineralization cannot exclude osteopenia or osteoporosis. Degenerative enthesopathy of the thoracic spine is present. There is calcification of the aortic arch. RPTAT:HJJR IMPRESSION: 1. Mild left lower lobe subsegmental atelectasis, improved compared to 04/06/2017. 2. Aortic atherosclerosis is present. Physician Vern Date Time Electronically viewed and signed by Hamzah Sood Physician on 12/15/2018 00:45 JR/ CC: GAIL JORDAN MD [id number] PROCEDURE: CT brain without contrast CLINICAL INDICATION: Altered mental status. Possible sepsis TECHNIQUE: A CT of the brain was performed utilizing axial sections from the skull base through the vertex without contrast. Sagittal and coronal images were also reformatted. DICOM images are available. One or more of the following dose reduction techniques were used: Automated exposure control, adjustment of the mA and/or kV according to patient size, use of iterative reconstruction technique. The exam CTDIvol = 38.71 mGy and DLP = 707.44 mGy-cm. COMPARISON: CT 04/02/2017 FINDINGS: No acute intracranial hemorrhage is identified. There is no mass effect or midline shift. No extra-axial fluid collection is seen. The ventricles and sulci are larger in size and configuration for the patient's provided age of 88 years consistent with advanced generalized atrophy. Diffuse low attenuation of the periventricular subcortical white matter likely reflects stable chronic small vessel ischemic white matter disease. Hall-white differentiation is preserved with no findings to suggest an acute ischemic infarct. The fourth ventricle is midline and there is no density alteration within the geoff or cerebellum. The osseous structures are diffusely demineralized, otherwise unremarkable. The mastoid air cells and visualized paranasal sinuses are clear. 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 No interval change from 04/02/2017. Physician Vern Date Time Electronically viewed and signed by Physician Vern on 12/15/2018 00:43 JR/ CC: GAIL JORDAN MD [id number] JAZZMINE SHARPE December 15, 2018 01:20
[2018-12-15] MEDS ORDERED: NACL 0.9% 3 ML SYG IV SCH (01:30)
[2018-12-15] MEDS ORDERED: ONDANSETRON 4 MG INJ IV PRN ×2 (01:30)
[2018-12-15] MEDS ORDERED: ACETAMINOPHEN 325 MG TAB PO PRN (01:30)
[2018-12-15] MEDS ORDERED: PENDING SANTYL ORDER FOR WOUND CARE XX PRN (05:00)
[2018-12-15] MEDS ORDERED: VANCOMYCIN HCL 1.5 GM in SOD CHLORIDE 0.9% 250 ML IVPB SCH (06:00)
[2018-12-15] MEDS ORDERED: VANCOMYCIN IV PER PHARMACY XX SCH (06:00)
[2018-12-15] MEDS ORDERED: SOD CHLORIDE 0.9% 500 ML IV ONE (08:00)
[2018-12-15] MEDS: AZTREONAM 1 GM/NS (PMX) 50 ML IVPB SCH ×2 (09:39→20:03)
[2018-12-15] MEDS: HEPARIN 5,000 UNIT/1 ML VIAL SC SCH ×2 (09:45→20:17)
--- NOTE | 2018-12-15 12:31 | PN ---
Date/Time of Note Date/Time of Note DATE: 12/15/18 TIME: 12:31 Assessment/Plan VTE Prophylaxis [place] [facility] [place] risk: 8 [place]CD [place] [facility] [place] Yes Pharmacological prophylaxis: NA/contraindicated Pharm contraindication: low risk/ambulating Lines/Catheters IV [facility]ter Type (from [facility]): Saline Lock Assessment/Plan Assessment/Plan 1. Severe sepsis secondary to UTI and cellulitis - patient currently on antibiotics - WBC still elevated but remains afebrile - Lactic acid trending down - blood cultures noted and most likely contaminant. will repeat 2. UTI - awaiting culture results - UA noted 3. right ankle cellulitis - IV antibiotics and will monitor for improvement - US negative for DVT and Xray results noted with no acute fractures 4. CRISTINA - improving - most likely ATN etiology 5. Disposition - Continue current antibiotics and awaiting urine culture results Result Diagram: 12/15/18 0542 12/15/18 0542 Results 24hrs Laboratory Tests Test 12/14/18 22:33 12/14/18 22:36 12/14/18 23:45 12/15/18 00:45 White Blood Count 29.7 #H Red Blood Count 4.95 # Hemoglobin 15.0 # Hematocrit 46.3 # Mean Corpuscular 93.5 Volume Mean Corpuscular 30.3 Hemoglobin Mean Corpuscular 32.4 Hemoglobin Concen t Red Cell 13.6 Distribution Width Platelet Count 240 Mean Platelet 10.4 Volume Immature 1.400 H Granulocytes % Neutrophils % Segmented 89 H Neutrophils % (Manual) Band Neutrophils 2 % (Manual) Lymphocytes % Lymphocytes % 3 L (Manual) Monocytes % Monocytes % 6 (Manual) Eosinophils % Basophils % Nucleated Red 0.0 Blood Cells % Immature 0.430 H Granulocytes # Neutrophils # Neutrophils # 26.6 H (Manual) Band Neutrophils 0.5 # Lymphocytes 0.8 (Manual) Lymphocytes # Monocytes # Monocytes # 1.7 H (Manual) Eosinophils # Basophils # Nucleated Red Blood Cells # Platelet Estimate NORMAL Prothrombin Time 13.5 Prothrombin Time 1.1 Ratio INR International 1.02 Normalized Ratio Activated 27.5 Partial Thrombopl ast Time Sodium Level 139 Potassium Level 4.7 Chloride Level 105 Carbon Dioxide 22 Level Anion Gap 12 Blood Urea 17 Nitrogen Creatinine 1.13 H Est Glomerular Filtrat Rate mL/min Glucose Level 194 Calcium Level 10.6 H Total Bilirubin 0.7 Direct Bilirubin 0.00 Indirect 0.7 Bilirubin Aspartate Amino 30 Transf (AST/SGOT) Alanine 38 Aminotransferase (ALT/SGPT) Alkaline 124 H Phosphatase Troponin I < 0.012 Total Protein 7.8 Albumin 4.2 Globulin 3.60 H Albumin/Globulin 1.16 Ratio POC Venous 2.8 *H Lactate Urine Color YELLOW Urine Clarity SLIGHTLY CLOUDY A Urine pH 5.0 Urine Specific 1.016 [place] Urine Ketones TRACE A Urine Nitrite POSITIVE A Urine Bilirubin NEGATIVE Urine NEGATIVE Urobilinogen Urine Leukocyte NEGATIVE Esterase Urine Microscopic 10 H RBC Urine Microscopic 2 WBC Urine Squamous FEW Epithelial Cells Urine Bacteria MODERATE Urine Mucus FEW A Urine Hemoglobin 1+ H Urine Glucose NEGATIVE Urine Total NEGATIVE Protein Lactic Acid Level 4.2 *H Test 12/15/18 00:55 12/15/18 02:57 12/15/18 05:42 POC Venous 3.2 *H Lactate Lactic Acid Level 3.5 *H White Blood Count 29.7 H Red Blood Count 4.41 Hemoglobin 13.3 Hematocrit 41.3 Mean Corpuscular 93.7 Volume Mean Corpuscular 30.2 Hemoglobin Mean Corpuscular 32.2 Hemoglobin Concen t Red Cell 13.9 Distribution Width Platelet Count 226 Mean Platelet 10.3 Volume Immature 1.500 H Granulocytes % Neutrophils % 87.4 H Lymphocytes % 3.9 L Monocytes % 7.1 Eosinophils % 0.0 Basophils % 0.1 Nucleated Red 0.0 Blood Cells % Immature 0.440 H Granulocytes # Neutrophils # 25.9 H Lymphocytes # 1.2 Monocytes # 2.1 H Eosinophils # 0.0 Basophils # 0.0 Nucleated Red 0.0 Blood Cells # Erythrocyte 19 Sedimentation Rate Sodium Level 140 Potassium Level 5.1 Chloride Level 109 Carbon Dioxide 23 Level Anion Gap 8 Blood Urea 17 Nitrogen Creatinine 1.07 H Est Glomerular Filtrat Rate mL/min Glucose Level 116 # Hemoglobin A1c 5.5 Calcium Level 9.5 Magnesium Level 1.8 Total Bilirubin 0.5 Direct Bilirubin 0.00 Indirect 0.5 Bilirubin Aspartate Amino 21 Transf (AST/SGOT) Alanine 30 Aminotransferase (ALT/SGPT) Alkaline 87 Phosphatase C-Reactive 8.8 H Protein Total Protein 6.3 # Albumin 3.2 #L Globulin 3.10 Albumin/Globulin 1.03 Ratio Thyroid 1.110 Stimulating Hormone (TSH) Subjective 24 Hr Interval Summary Free Text/Dictation Patient states shes feeling better and less confused this am. Very hard of hearing but denies any acute issues. Exam/Review of Systems Exam Vitals Vital Signs Date Temp Pulse Resp B/P (MAP) Pulse Ox O2 O2 Flow FiO2 Time Delivery Rate 12/15/18 98.4 78 18 127/63 93 11:06 (84) 12/15/18 Room Air 03:45 Intake and Output 12/14/18 12/14/18 12/15/18 1515:00 23:00 07:00 IntakeIntake Total 1950 ml BalanceBalance 1950 ml Exam General: Patient is a pleasant female. no acute distress Neck: Supple Chest: Nontender Lungs: Clear to auscultation bilaterally no crackles rales or wheezing Heart: Normal S1-S2, Regular rhythm and rate. No murmur, S3, or S4 Abdomen: Soft , nontender, nondistended , bowel sounds are present. No guarding no rebound tenderness Extremities: erythema medial aspect right ankle with warmth, no discharge or pain at site Results Results 24hrs Laboratory Tests Test 12/14/18 22:33 12/14/18 22:36 12/14/18 23:45 12/15/18 00:45 White Blood Count 29.7 #H Red Blood Count 4.95 # Hemoglobin 15.0 # Hematocrit 46.3 # Mean Corpuscular 93.5 Volume Mean Corpuscular 30.3 Hemoglobin Mean Corpuscular 32.4 Hemoglobin Concen t Red Cell 13.6 Distribution Width Platelet Count 240 Mean Platelet 10.4 Volume Immature 1.400 H Granulocytes % Neutrophils % Segmented 89 H Neutrophils % (Manual) Band Neutrophils 2 % (Manual) Lymphocytes % Lymphocytes % 3 L (Manual) Monocytes % Monocytes % 6 (Manual) Eosinophils % Basophils % Nucleated Red 0.0 Blood Cells % Immature 0.430 H Granulocytes # Neutrophils # Neutrophils # 26.6 H (Manual) Band Neutrophils 0.5 # Lymphocytes 0.8 (Manual) Lymphocytes # Monocytes # Monocytes # 1.7 H (Manual) Eosinophils # Basophils # Nucleated Red Blood Cells # Platelet Estimate NORMAL Prothrombin Time 13.5 Prothrombin Time 1.1 Ratio INR International 1.02 Normalized Ratio Activated 27.5 Partial Thrombopl ast Time Sodium Level 139 Potassium Level 4.7 Chloride Level 105 Carbon Dioxide 22 Level Anion Gap 12 Blood Urea 17 Nitrogen Creatinine 1.13 H Est Glomerular Filtrat Rate mL/min Glucose Level 194 Calcium Level 10.6 H Total Bilirubin 0.7 Direct Bilirubin 0.00 Indirect 0.7 Bilirubin Aspartate Amino 30 Transf (AST/SGOT) Alanine 38 Aminotransferase (ALT/SGPT) Alkaline 124 H Phosphatase Troponin I < 0.012 Total Protein 7.8 Albumin 4.2 Globulin 3.60 H Albumin/Globulin 1.16 Ratio POC Venous 2.8 *H Lactate Urine Color YELLOW Urine Clarity SLIGHTLY CLOUDY A Urine pH 5.0 Urine Specific 1.016 [place] Urine Ketones TRACE A Urine Nitrite POSITIVE A Urine Bilirubin NEGATIVE Urine NEGATIVE Urobilinogen Urine Leukocyte NEGATIVE Esterase Urine Microscopic 10 H RBC Urine Microscopic 2 WBC Urine Squamous FEW Epithelial Cells Urine Bacteria MODERATE Urine Mucus FEW A Urine Hemoglobin 1+ H Urine Glucose NEGATIVE Urine Total NEGATIVE Protein Lactic Acid Level 4.2 *H Test 12/15/18 00:55 12/15/18 02:57 12/15/18 05:42 POC Venous 3.2 *H Lactate Lactic Acid Level 3.5 *H White Blood Count 29.7 H Red Blood Count 4.41 Hemoglobin 13.3 Hematocrit 41.3 Mean Corpuscular 93.7 Volume Mean Corpuscular 30.2 Hemoglobin Mean Corpuscular 32.2 Hemoglobin Concen t Red Cell 13.9 Distribution Width Platelet Count 226 Mean Platelet 10.3 Volume Immature 1.500 H Granulocytes % Neutrophils % 87.4 H Lymphocytes % 3.9 L Monocytes % 7.1 Eosinophils % 0.0 Basophils % 0.1 Nucleated Red 0.0 Blood Cells % Immature 0.440 H Granulocytes # Neutrophils # 25.9 H Lymphocytes # 1.2 Monocytes # 2.1 H Eosinophils # 0.0 Basophils # 0.0 Nucleated Red 0.0 Blood Cells # Erythrocyte 19 Sedimentation Rate Sodium Level 140 Potassium Level 5.1 Chloride Level 109 Carbon Dioxide 23 Level Anion Gap 8 Blood Urea 17 Nitrogen Creatinine 1.07 H Est Glomerular Filtrat Rate mL/min Glucose Level 116 # Hemoglobin A1c 5.5 Calcium Level 9.5 Magnesium Level 1.8 Total Bilirubin 0.5 Direct Bilirubin 0.00 Indirect 0.5 Bilirubin Aspartate Amino 21 Transf (AST/SGOT) Alanine 30 Aminotransferase (ALT/SGPT) Alkaline 87 Phosphatase C-Reactive 8.8 H Protein Total Protein 6.3 # Albumin 3.2 #L Globulin 3.10 Albumin/Globulin 1.03 Ratio Thyroid 1.110 Stimulating Hormone (TSH) Medications Medication Current Medications Ondansetron HCl (Zofran Inj) 4 mg ER BRIDGE PRN IV NAUSEA/VOMITING; Start 5/1/1 9 at 01:30; Stop 12/16/18 at 01:29 Acetaminophen (Tylenol Tab) 650 mg ER BRIDGE PRN PO .MILD PAIN 1-3 OR TEMP; Start 12/15/18 at 01:30; Stop 12/16/18 at 01:29 IV Flush (NS 3 ml) 3 ml PER PROTOCOL IV ; Start 12/15/18 at 01:30 Ondansetron HCl (Zofran Inj) 4 mg Q6H PRN IV NAUSEA/VOMITING; Start 12/15/18 at 01:30 Acetaminophen (Tylenol Tab) 650 mg Q6H PRN PO .PAIN 1-3 OR TEMP; Start 12/15/18 at 01:30 Aztreonam 50 ml @ 100 mls/hr Q12 IVPB Last administered on 12/15/18at 09:39; Admin Dose 100 MLS/HR; Start 12/15/18 at 09:00 [facility] This patient felipe... PRN PRN XX WOUND CARE; Start 12/15/18 at 05:00 Vancomycin HCl (Vanco Iv Per Pharmacy) VANCOMYCIN PER PHARMACY PER PROTOCOL XX ; Start 12/15/18 at 06:00 Heparin Sodium (Porcine) (Heparin (5000 Units/1ml)) 5,000 unit BID SC Last administered on 12/15/18at 09:45; Admin Dose 5,000 UNIT; Start 12/15/18 at 09:00 SHILPI GRAVES MD December 15, 2018 12:31
[2018-12-16] VITALS (12 sets, daily range): BP systolic 129–179; BP diastolic 62–77; PULSE 64–77; RESP 17–18
[2018-12-16] MEDS: VANCOMYCIN 750 MG (PMX) 250 ML IVPB SCH (06:36)
[2018-12-16] MEDS: AZTREONAM 1 GM/NS (PMX) 50 ML IVPB SCH ×2 (09:00→21:31)
[2018-12-16] MEDS: HEPARIN 5,000 UNIT/1 ML VIAL SC SCH ×2 (09:08→21:41)
--- NOTE | 2018-12-16 10:23 | PN ---
Date/Time of Note Date/Time of Note DATE: 12/16/18 TIME: 10:23 Assessment/Plan VTE Prophylaxis Risk score (from Ns)>0 risk: 8 SCD applied (from Ns): Yes Pharmacological prophylaxis: LMWH Lines/Catheters IV Catheter Type (from Nrs): Saline Lock Assessment/Plan Assessment/Plan 1. Severe sepsis secondary to UTI and cellulitis - WBC trending downward and remains afebrile - ID consultation appreciated and will continue on current antibiotics - Lactic acid normalized 2. Strep bacteremia - most likely cellulitis as source - continue current antibiotics 3. UTI - Culture results noted and awaiting sensitivities - UA noted 4. right ankle cellulitis - IV antibiotics and will monitor for improvement - US negative for DVT and Xray results noted with no acute fractures 5. CRISTINA - improving - most likely ATN etiology 6. Disposition - ID consultation appreciated and continue on current antibiotics. Awaiting culture sensitivities Result Diagram: 12/16/18 0558 12/16/18 0558 Results 24hrs Laboratory Tests Test 12/15/18 12:02 12/15/18 17:06 12/16/18 05:58 Lactic Acid Level 2.2 *H 3.4 *H 1.3 White Blood Count 18.0 #H Red Blood Count 4.38 Hemoglobin 13.2 Hematocrit 40.4 Mean Corpuscular Volume 92.2 Mean Corpuscular Hemoglobin 30.1 Mean Corpuscular Hemoglobin Concent 32.7 Red Cell Distribution Width 14.2 Platelet Count 207 Mean Platelet Volume 10.6 H Immature Granulocytes % 0.600 H Neutrophils % 82.7 H Lymphocytes % 8.9 L Monocytes % 7.4 Eosinophils % 0.1 Basophils % 0.3 Nucleated Red Blood Cells % 0.0 Immature Granulocytes # 0.110 H Neutrophils # 14.9 H Lymphocytes # 1.6 Monocytes # 1.3 H Eosinophils # 0.0 Basophils # 0.1 Nucleated Red Blood Cells # 0.0 Sodium Level 137 Potassium Level 4.5 Chloride Level 110 Carbon Dioxide Level 23 Anion Gap 4 L Blood Urea Nitrogen 14 Creatinine 1.05 H Est Glomerular Filtrat Rate mL/min Glucose Level 99 Calcium Level 10.5 H Total Bilirubin 0.3 Direct Bilirubin 0.00 Indirect Bilirubin 0.3 Aspartate Amino Transf (AST/SGOT) 19 Alanine Aminotransferase (ALT/SGPT) 30 Alkaline Phosphatase 97 Total Protein 6.0 L Albumin 2.9 L Globulin 3.10 Albumin/Globulin Ratio 0.93 Subjective 24 Hr Interval Summary Free Text/Dictation Patient states shes feeling better and denies any acute issues. Exam/Review of Systems Exam Vitals Vital Signs Date Temp Pulse Resp B/P (MAP) Pulse Ox O2 O2 Flow FiO2 Time Delivery Rate 12/16/18 76 08:32 12/16/18 98.2 18 144/67 96 07:53 (92) 12/15/18 Room Air 03:45 Intake and Output 12/15/18 12/15/18 12/16/18 1515:00 23:00 07:00 IntakeIntake Total 240 ml 460 ml 200 ml BalanceBalance 240 ml 460 ml 200 ml Exam General: Patient is a pleasant female. no acute distress. NELSON LAGOON Neck: Supple Chest: Nontender Lungs: Clear to auscultation bilaterally no crackles rales or wheezing Heart: Normal S1-S2, Regular rhythm and rate. No murmur, S3, or S4 Abdomen: Soft , nontender, nondistended , bowel sounds are present. No guarding no rebound tenderness Extremities: erythema medial aspect right ankle with warmth, no discharge or pain at site Results Results 24hrs Laboratory Tests Test 12/15/18 12:02 12/15/18 17:06 12/16/18 05:58 Lactic Acid Level 2.2 *H 3.4 *H 1.3 White Blood Count 18.0 #H Red Blood Count 4.38 Hemoglobin 13.2 Hematocrit 40.4 Mean Corpuscular Volume 92.2 Mean Corpuscular Hemoglobin 30.1 Mean Corpuscular Hemoglobin Concent 32.7 Red Cell Distribution Width 14.2 Platelet Count 207 Mean Platelet Volume 10.6 H Immature Granulocytes % 0.600 H Neutrophils % 82.7 H Lymphocytes % 8.9 L Monocytes % 7.4 Eosinophils % 0.1 Basophils % 0.3 Nucleated Red Blood Cells % 0.0 Immature Granulocytes # 0.110 H Neutrophils # 14.9 H Lymphocytes # 1.6 Monocytes # 1.3 H Eosinophils # 0.0 Basophils # 0.1 Nucleated Red Blood Cells # 0.0 Sodium Level 137 Potassium Level 4.5 Chloride Level 110 Carbon Dioxide Level 23 Anion Gap 4 L Blood Urea Nitrogen 14 Creatinine 1.05 H Est Glomerular Filtrat Rate mL/min Glucose Level 99 Calcium Level 10.5 H Total Bilirubin 0.3 Direct Bilirubin 0.00 Indirect Bilirubin 0.3 Aspartate Amino Transf (AST/SGOT) 19 Alanine Aminotransferase (ALT/SGPT) 30 Alkaline Phosphatase 97 Total Protein 6.0 L Albumin 2.9 L Globulin 3.10 Albumin/Globulin Ratio 0.93 Medications Medication Current Medications IV Flush (NS 3 ml) 3 ml PER PROTOCOL IV ; Start 12/15/18 at 01:30 Ondansetron HCl (Zofran Inj) 4 mg Q6H PRN IV NAUSEA/VOMITING; Start 12/15/18 at 01:30 Acetaminophen (Tylenol Tab) 650 mg Q6H PRN PO .PAIN 1-3 OR TEMP; Start 12/15/18 at 01:30 Aztreonam 50 ml @ 100 mls/hr Q12 IVPB Last administered on 12/16/18at 09:00; Admin Dose 100 MLS/HR; Start 12/15/18 at 09:00 Miscellaneous Information (Pending [facility] Order For Wound Care) This patient felipe... PRN PRN XX WOUND CARE; Start 12/15/18 at 05:00 Vancomycin HCl (Vanco Iv Per Pharmacy) VANCOMYCIN PER PHARMACY PER PROTOCOL XX ; Start 12/15/18 at 06:00 Heparin Sodium (Porcine) (Heparin (5000 Units/1ml)) 5,000 unit BID SC Last administered on 12/16/18at 09:08; Admin Dose 5,000 UNIT; Start 12/15/18 at 09:00 Vancomycin/Sodium Chloride 250 ml @ 125 mls/hr Q24H IVPB Last administered on 12/16/18at 06:36; Admin Dose 125 MLS/HR; Start 12/16/18 at 06:00 SHILPI GRAVES MD December 16, 2018 10:23
--- NOTE | 2018-12-16 15:28 | CONS ---
DATE OF ADMISSION: 12/15/2018 DATE OF CONSULTATION: 12/15/2018 REASON FOR CONSULTATION: Antibiotic management. HISTORY OF PRESENT ILLNESS: Flor Gomez is an 88-year-old female who comes in on 12/14/2018 wit h altered levels of consciousness for 4 hours with dizziness, vomiting and a strong urine odor. Over 12 to 24 hours before admission, she became increasingly confused, more lethargic with decreased res ponsiveness. She is dizzy, had some nonbloody, nonbilious emesis. PAST MEDICAL HISTORY: She has no history of high blood pressure, diabetes or heart disease. FAMILY HISTORY: Noncontributory. SOCIAL HISTORY: She does not smoke, drink or abuse drugs. ALLERGIES: 1. PENICILLIN. 2. SULFA. HOSPITAL COURSE: On admission, her white count was 29.7 with 89% neutrophils, 2% bands, H and H of 1 5 and 46.3, platelet count 240,000. BUN and creatinine 17/1.13, glucose of 194. Her urine was cloud y, had negative leukocyte esterase, positive nitrite, only 2 white cells per high-power field. The p atient was initially started on ceftriaxone and aztreonam. IMAGING: Chest x-ray showed clear lung suazo bilaterally without evidence of pneumothorax. CT scan of the abdomen and pelvis showed wide mouth left infraumbilical ventral wall hernia containing small bowel and omental fat without strangulation, status post previous small and large bowel resection wi th unremarkable anastomotic lines, mild diverticulosis of the descending colon with no evidence of di verticulitis, mild left pelvic renal cysts. No calcified urinary calculi or obstructive uropathy, sm all consolidation posterior left lower lobe, may be due to atelectasis, pneumonia cannot be excluded. The patient had significant leukocytosis. PHYSICAL EXAMINATION: GENERAL: She is an elderly female currently is in no acute distress. VITAL SIGNS: Stable. She is afebrile. SKIN: Without generalized rash. HEENT: Within normal limits. NECK: Supple. LYMPH NODES: None palpable. CHEST: Decreased breath sounds at the bases. HEART: Without murmur or gallop. ABDOMEN: Soft, nontender, without organosplenomegaly or masses. EXTREMITIES: She has some erythema of the medial aspect of the right ankle with some warmth, no disc harge or pain. ASSESSMENT AND PLAN: So, we may be dealing also with the possibility of cellulitis. She has severe sepsis secondary to urinary tract infection and cellulitis. Currently, she is on antibiotic therapy. She is on vancomycin and aztreonam since she is allergic to PENICILLIN. We will continue her on regimen. Continue antibiotics. We will await the urine culture results. Actually, her blood cul tures are now growing group A strep from both blood cultures most consistent with her cellulitis. I believe that that is more likely in view of her positive blood cultures for group B strep. We will c ontinue to observe her right ankle cellulitis, await the results of her urine cultures. I will dicta te my findings to the hospitalist. Dictated By: CESAR GORDON MD, JD/NTS Conf#: [id number] DID#: [id number] CC: JAZZMINE SHARPE MD;*End*
[2018-12-17] VITALS (13 sets, daily range): BP systolic 133–146; BP diastolic 53–74; PULSE 69–83; RESP 17–19
[2018-12-17] MEDS: VANCOMYCIN 750 MG (PMX) 250 ML IVPB SCH (06:24)
[2018-12-17] MEDS: AZTREONAM 1 GM/NS (PMX) 50 ML IVPB SCH ×2 (08:59→21:06)
[2018-12-17] MEDS: HEPARIN 5,000 UNIT/1 ML VIAL SC SCH ×2 (09:02→21:20)
--- NOTE | 2018-12-17 10:20 | PN ---
Date/Time of Note Date/Time of Note DATE: 12/17/18 TIME: 10:10 Assessment/Plan VTE Prophylaxis Risk score (from [facility] [place])>0 risk: 5 SCD applied (from [facility] [place]): No SCD contraindicated: other Pharmacological prophylaxis: LMWH Lines/Catheters IV Catheter Type (from [facility]): Saline Lock Assessment/Plan Assessment/Plan 1. Severe sepsis secondary to UTI, cellulitis, and bacteremia- improving - WBC trending downward and remains afebrile - ID consultation appreciated. Bacteremia source most likely cellulitis - Lactic acid normalized 2. Strep bacteremia - most likely cellulitis as source - continue current antibiotics - will repeat blood cultures 3. Acute encephalopathy secondary to sepsis - resolving. still pleasantly confused 4. right ankle cellulitis - IV antibiotics and will monitor for improvement - US negative for DVT and Xray results noted with no acute fractures 5. CRISTINA- resolved - most likely ATN etiology 6. UTI - Culture results noted 7. Disposition - Continue current plan of care. Repeat blood cultures to monitor for bacteria clearing - PT/OT ordered for discharge planning Result Diagram: 12/17/18 0456 12/17/18 0456 Results 24hrs Laboratory Tests Test 12/17/18 04:56 White Blood Count 13.4 #H Red Blood Count 4.57 Hemoglobin 13.7 Hematocrit 42.4 Mean Corpuscular Volume 92.8 Mean Corpuscular Hemoglobin 30.0 Mean Corpuscular Hemoglobin Concent 32.3 Red Cell Distribution Width 13.7 Platelet Count 231 Mean Platelet Volume 10.8 H Immature Granulocytes % 0.600 H Neutrophils % 76.3 Lymphocytes % 14.3 L Monocytes % 8.0 Eosinophils % 0.5 Basophils % 0.3 Nucleated Red Blood Cells % 0.0 Immature Granulocytes # 0.080 H Neutrophils # 10.2 H Lymphocytes # 1.9 Monocytes # 1.1 H Eosinophils # 0.1 Basophils # 0.0 Nucleated Red Blood Cells # 0.0 Sodium Level 140 Potassium Level 4.3 Chloride Level 108 Carbon Dioxide Level 25 Anion Gap 7 Blood Urea Nitrogen 14 Creatinine 0.96 Est Glomerular Filtrat Rate mL/min Glucose Level 110 Calcium Level 10.1 Total Bilirubin 0.3 Direct Bilirubin 0.00 Indirect Bilirubin 0.3 Aspartate Amino Transf (AST/SGOT) 37 Alanine Aminotransferase (ALT/SGPT) 44 Alkaline Phosphatase 108 Total Protein 6.6 Albumin 3.3 Globulin 3.30 H Albumin/Globulin Ratio 1.00 Subjective 24 Hr Interval Summary Free Text/Dictation Patient states shes doing better and denies any acute issues. remains pleasantly confused and says shes concerned about her son, Barney, who is across the [place]. (not present in the building) Exam/Review of Systems Exam Vitals Vital Signs Date Temp Pulse Resp B/P (MAP) Pulse Ox O2 O2 Flow FiO2 Time Delivery Rate 12/17/18 98.0 74 18 140/63 97 Room Air 08:07 (88) Intake and Output 12/16/18 12/16/18 12/17/18 1515:00 23:00 07:00 IntakeIntake Total 650 ml 200 ml BalanceBalance 650 ml 200 ml Exam General: Patient is a pleasant female. no acute distress. hard of hearing Neck: Supple Chest: Nontender Lungs: Clear to auscultation bilaterally no crackles rales or wheezing Heart: Normal S1-S2, Regular rhythm and rate. No murmur, S3, or S4 Abdomen: Soft , nontender, nondistended , bowel sounds are present. No guarding no rebound tenderness Extremities: erythema right ankle extending to mid calf with warmth, no discharge or pain at site Results Results 24hrs Laboratory Tests Test 12/17/18 04:56 White Blood Count 13.4 #H Red Blood Count 4.57 Hemoglobin 13.7 Hematocrit 42.4 Mean Corpuscular Volume 92.8 Mean Corpuscular Hemoglobin 30.0 Mean Corpuscular Hemoglobin Concent 32.3 Red Cell Distribution Width 13.7 Platelet Count 231 Mean Platelet Volume 10.8 H Immature Granulocytes % 0.600 H Neutrophils % 76.3 Lymphocytes % 14.3 L Monocytes % 8.0 Eosinophils % 0.5 Basophils % 0.3 Nucleated Red Blood Cells % 0.0 Immature Granulocytes # 0.080 H Neutrophils # 10.2 H Lymphocytes # 1.9 Monocytes # 1.1 H Eosinophils # 0.1 Basophils # 0.0 Nucleated Red Blood Cells # 0.0 Sodium Level 140 Potassium Level 4.3 Chloride Level 108 Carbon Dioxide Level 25 Anion Gap 7 Blood Urea Nitrogen 14 Creatinine 0.96 Est Glomerular Filtrat Rate mL/min Glucose Level 110 Calcium Level 10.1 Total Bilirubin 0.3 Direct Bilirubin 0.00 Indirect Bilirubin 0.3 Aspartate Amino Transf (AST/SGOT) 37 Alanine Aminotransferase (ALT/SGPT) 44 Alkaline Phosphatase 108 Total Protein 6.6 Albumin 3.3 Globulin 3.30 H Albumin/Globulin Ratio 1.00 Medications Medication Current Medications IV Flush (NS 3 ml) 3 ml PER PROTOCOL IV ; Start 12/15/18 at 01:30 Ondansetron HCl (Zofran Inj) 4 mg Q6H PRN IV NAUSEA/VOMITING; Start 12/15/18 at 01:30 Acetaminophen (Tylenol Tab) 650 mg Q6H PRN PO .PAIN 1-3 OR TEMP; Start 12/15/18 at 01:30 Aztreonam 50 ml @ 100 mls/hr Q12 IVPB Last administered on 12/17/18at 08:59; Admin Dose 100 MLS/HR; Start 12/15/18 at 09:00 [facility] This patient felipe... PRN PRN XX WOUND CARE; Start 12/15/18 at 05:00 Vancomycin HCl (Vanco Iv Per Pharmacy) VANCOMYCIN PER PHARMACY PER PROTOCOL XX ; Start 12/15/18 at 06:00 Heparin Sodium (Porcine) (Heparin (5000 Units/1ml)) 5,000 unit BID SC Last administered on 12/17/18at 09:02; Admin Dose 5,000 UNIT; Start 12/15/18 at 09:00 Vancomycin/Sodium Chloride 250 ml @ 125 mls/hr Q24H IVPB Last administered on 12/17/18at 06:24; Admin Dose 125 MLS/HR; Start 12/16/18 at 06:00 SHILPI GRAVES MD December 17, 2018 10:20
--- NOTE | 2018-12-17 13:50 | CONS ---
Assessment/Plan Assessment/Plan Hospital Course (Demo Recall) Patient is alert sitting comfortably in bed looks comfortable no fevers overnight. WBC 13.4 platelets 231 neutrophils 76.3 BUN 14 creatinine 0.96 Microbiology: Blood culture on admission grew strep pyogenous, urine culture grew E. coli and alpha hemolytic strep species Antimicrobials: Vancomycin and aztreonam Allergies: Penicillin, sulfa Well-developed elderly woman who is awake in no distress. Head atraumatic normocephalic sclera nonicteric neck is supple chest rise symmetrical breath sounds diminished bases. Heart: S1-S2. Abdomen soft bowel sounds present. Extremities with right lower extremity edema and erythema below knee Assessment: 1. Sepsis, present on admission 2. Strep pyogenous bacteremia 3. Polymicrobial UTI 4. Right lower extremity cellulitis, no evidence for DVT 5. Possible pneumonia, left lower lobe Plan: Patient is stable, pending repeat blood cultures, continue on current antibiotics check 2D echo, repeat chest x-ray in a.m. Consultation Date/Type/Reason Admit Date/Time December 15, 2018 at 01:09 Initial Consult Date Type of Consult id Date/Time of Note DATE: 12/17/18 TIME: 13:49 Exam/Review of Systems Exam Vitals Vital Signs Date Temp Pulse Resp B/P (MAP) Pulse Ox O2 O2 Flow FiO2 Time Delivery Rate 12/17/18 98.0 18 138/68 94 Room Air 12:09 (91) 12/17/18 83 12:00 Intake and Output 12/16/18 12/16/18 12/17/18 1515:00 23:00 07:00 IntakeIntake Total 650 ml 200 ml BalanceBalance 650 ml 200 ml Results Result Diagram: 12/17/18 0456 12/17/18 0456 Results 24hrs Laboratory Tests Test 12/17/18 04:56 White Blood Count 13.4 #H Red Blood Count 4.57 Hemoglobin 13.7 Hematocrit 42.4 Mean Corpuscular Volume 92.8 Mean Corpuscular Hemoglobin 30.0 Mean Corpuscular Hemoglobin Concent 32.3 Red Cell Distribution Width 13.7 Platelet Count 231 Mean Platelet Volume 10.8 H Immature Granulocytes % 0.600 H Neutrophils % 76.3 Lymphocytes % 14.3 L Monocytes % 8.0 Eosinophils % 0.5 Basophils % 0.3 Nucleated Red Blood Cells % 0.0 Immature Granulocytes # 0.080 H Neutrophils # 10.2 H Lymphocytes # 1.9 Monocytes # 1.1 H Eosinophils # 0.1 Basophils # 0.0 Nucleated Red Blood Cells # 0.0 Sodium Level 140 Potassium Level 4.3 Chloride Level 108 Carbon Dioxide Level 25 Anion Gap 7 Blood Urea Nitrogen 14 Creatinine 0.96 Est Glomerular Filtrat Rate mL/min Glucose Level 110 Calcium Level 10.1 Total Bilirubin 0.3 Direct Bilirubin 0.00 Indirect Bilirubin 0.3 Aspartate Amino Transf (AST/SGOT) 37 Alanine Aminotransferase (ALT/SGPT) 44 Alkaline Phosphatase 108 Total Protein 6.6 Albumin 3.3 Globulin 3.30 H Albumin/Globulin Ratio 1.00 Medications Medication Current Medications IV Flush (NS 3 ml) 3 ml PER PROTOCOL IV ; Start 12/15/18 at 01:30 Ondansetron HCl (Zofran Inj) 4 mg Q6H PRN IV NAUSEA/VOMITING; Start 12/15/18 at 01:30 Acetaminophen (Tylenol Tab) 650 mg Q6H PRN PO .PAIN 1-3 OR TEMP; Start 12/15/18 at 01:30 Aztreonam 50 ml @ 100 mls/hr Q12 IVPB Last administered on 12/17/18at 08:59; Admin Dose 100 MLS/HR; Start 12/15/18 at 09:00 Miscellaneous Information (Pending [facility] Order For Wound Care) This patient felipe... PRN PRN XX WOUND CARE; Start 12/15/18 at 05:00 Vancomycin HCl (Vanco Iv Per Pharmacy) VANCOMYCIN PER PHARMACY PER PROTOCOL XX ; Start 12/15/18 at 06:00 Heparin Sodium (Porcine) (Heparin (5000 Units/1ml)) 5,000 unit BID SC Last administered on 12/17/18at 09:02; Admin Dose 5,000 UNIT; Start 12/15/18 at 09:00 Vancomycin/Sodium Chloride 250 ml @ 125 mls/hr Q24H IVPB Last administered on 12/17/18at 06:24; Admin Dose 125 MLS/HR; Start 12/16/18 at 06:00 MIRACLE REGAN NP December 17, 2018 13:50
[2018-12-17] MEDS: ACETAMINOPHEN 325 MG TAB PO PRN (15:06)
--- NOTE | 2018-12-17 18:56 | RADRPT ---
Echocardiogram Report Patient Name: Becky DAMONtient ID: [id number] : [id number] (88y 10m)Study Date: 12/17/2018 2:24:13 PM Gender: FAccession #: [id number] Tech: SHELL Location: Ref.Physician: MIRACLE REGAN Height(Cm): BSA: Weight(Kg): Quality: GoodAccount #: Procedures: Echocardiographic Report: Transthoracic echocardiogram with complete 2D, M-Mode, and doppler examination. Indications: Endocarditis. Measurements: 2D/M Mode Doppler Measurement Value Normal Range Measurement Value Normal Range LVIDd 2D 4.1 [ 3.8 - 5.2 ] cm AV Mean Diego 0.8 [ 70.0 - 90.0 ] cm/sec LVIDs 2D 2.8 [ 2.2 - 3.5 ] cm AV Mean PG 3.0 [ 2.0 - 4.0 ] mmHg LVPWd 2D 1.1 [ 0.6 - 0.9 ] cm AV Peak Diego 1.0 [ 100.0 - 170.0 ] cm/sec IVSd 2D 1.0 [ 0.6 - 0.9 ] cm AV Peak PG 4.0 [ 2.0 - 9.0 ] mmHg EDV 2D 75.1 [ 46.0 - 106.0 ] ml AV VTI 18.0 cm ESV 2D 30.6 [ 14.0 - 42.0 ] ml LVOT Peak Diego 1.0 [ 70.0 - 110.0 ] cm/sec EF 2D 59.3 [ 54.0 - 74.0 ] percent LVOT Peak PG 4.0 [ 2.0 - 6.0 ] mmHg LVOT Diam 2.0 [ 2.1 - 2.5 ] cm MV E Peak Diego 0.6 [ 60.0 - 130.0 ] cm/sec MV A Peak Diego 0.8 [ 100.0 - 120.0 ] cm/sec MV E/A 0.7 [ 0.8 - 1.5 ] ratio MV Decel Time 306 [ 104 - 258 ] msec Lat E` Diego 0.0 [ 10.0 - 15.0 ] cm/sec Lateral E/E` 13.8 [ 1.0 - 2.0 ] ratio Med E` Diego 0.0 cm/sec MV E/A 0.7 [ 0.8 - 1.5 ] ratio TR Peak Diego 2.3 [ 100.0 - 280.0 ] cm/sec TR Peak PG 22.0 mmHg PV Peak Diego 0.8 [ 40.0 - 80.0 ] cm/sec PV Peak PG 3.0 mmHg Findings: Left Ventricle: Normal left ventricular systolic function. Normal left ventricular cavity size. Normal left ventricular wall thickness. Ejection fraction is visually estimated at 55 %. Tissue Doppler/Mitral Doppler indices are consistent with impaired relaxation (Stage I diastolic dysfunction). Right Ventricle: Normal right ventricular size. Normal right ventricular systolic function. Left Atrium: The left atrium is normal in size. Right Atrium: The right atrium is normal in size. Mitral Valve: Normal appearance of the mitral valve. Mild mitral annular calcification. Trace mitral regurgitation. No evidence of endocarditis. Aortic Valve: Normal appearance of the aortic valve. No significant aortic stenosis or insufficiency. No evidence of endocarditis. Tricuspid Valve: Normal appearance of the tricuspid valve. Estimated peak PA systolic pressure 25 mmHg. There is trace tricuspid regurgitation. No evidence of endocarditis. Pulmonic Valve: Pulmonic valve not well visualized. Pericardium: Normal pericardium with no significant pericardial effusion. There is an anterior echo free space consistent with epicardial fat pad. Aorta: Normal aortic root. IVC: Normal size and normal respiratory collapse consistent with normal right atrial pressure. Conclusions: Normal left ventricular systolic function. Normal left ventricular cavity size. Normal left ventricular wall thickness. Ejection fraction is visually estimated at 55 %. Tissue Doppler/Mitral Doppler indices are consistent with impaired relaxation (Stage I diastolic dysfunction). Normal appearance of the mitral valve. Mild mitral annular calcification. Trace mitral regurgitation. No evidence of endocarditis. s. Normal appearance of the aortic valve. No significant aortic stenosis or insufficiency. No evidence of endocarditis. Normal appearance of the tricuspid valve. Estimated peak PA systolic pressure 25 mmHg. There is trace tricuspid regurgitation. No evidence of endocarditis. Normal pericardium with no significant pericardial effusion. There is an anterior echo free space consistent with epicardial fat pad. Electronically Signed By: Manohar Krishnan 2018-12-17 18:56:10 PDT
[2018-12-18] VITALS (9 sets, daily range): BP systolic 134–153; BP diastolic 60–69; PULSE 53–87; RESP 19–20
[2018-12-18] MEDS: VANCOMYCIN 750 MG (PMX) 250 ML IVPB SCH (06:49)
[2018-12-18] MEDS: AZTREONAM 1 GM/NS (PMX) 50 ML IVPB SCH (09:46)
[2018-12-18] MEDS: HEPARIN 5,000 UNIT/1 ML VIAL SC SCH ×2 (09:50→20:57)
--- NOTE | 2018-12-18 10:33 | PN ---
Date/Time of Note Date/Time of Note DATE: 12/18/18 TIME: 10:33 Assessment/Plan VTE Prophylaxis Risk score (from Ns)>0 risk: 5 SCD applied (from [facility] [place]): No SCD contraindicated: other Pharmacological prophylaxis: LMWH Lines/Catheters IV Catheter Type (from [facility]): Peripheral IV Assessment/Plan Assessment/Plan 1. Severe sepsis secondary to UTI, cellulitis, and bacteremia- improving - WBC continues to trend downward and remains afebrile - ID consultation appreciated. Bacteremia source most likely cellulitis - Lactic acid normalized 2. Strep bacteremia - most likely cellulitis as source - continue current antibiotics - repeat blood cultures pending 3. Acute encephalopathy secondary to sepsis - resolving. still pleasantly confused 4. right ankle cellulitis - IV antibiotics and will monitor for improvement - US negative for DVT and Xray results noted with no acute fractures 5. CRISTINA- resolved - most likely ATN etiology 6. UTI - Culture results noted 7. Disposition - Awaiting repeat blood culture - CM consulted for SNF placement. Repeat blood culture results will determine further plan of care and when patient will be cleared for discharge Result Diagram: 12/18/18 0514 12/18/18 0514 Results 24hrs Laboratory Tests Test 12/18/18 05:14 White Blood Count 12.7 H Red Blood Count 4.58 Hemoglobin 13.7 Hematocrit 42.3 Mean Corpuscular Volume 92.4 Mean Corpuscular Hemoglobin 29.9 Mean Corpuscular Hemoglobin Concent 32.4 Red Cell Distribution Width 13.7 Platelet Count 267 Mean Platelet Volume 10.6 H Immature Granulocytes % 1.000 H Neutrophils % 74.1 Lymphocytes % 14.9 L Monocytes % 9.1 Eosinophils % 0.3 Basophils % 0.6 Nucleated Red Blood Cells % 0.0 Immature Granulocytes # 0.130 H Neutrophils # 9.4 H Lymphocytes # 1.9 Monocytes # 1.2 H Eosinophils # 0.0 Basophils # 0.1 Nucleated Red Blood Cells # 0.0 Sodium Level 139 Potassium Level 4.2 Chloride Level 107 Carbon Dioxide Level 25 Anion Gap 7 Blood Urea Nitrogen 14 Creatinine 0.89 Est Glomerular Filtrat Rate mL/min Glucose Level 107 Calcium Level 9.9 Magnesium Level 2.2 Total Bilirubin 0.4 Direct Bilirubin 0.00 Indirect Bilirubin 0.4 Aspartate Amino Transf (AST/SGOT) 74 H Alanine Aminotransferase (ALT/SGPT) 94 H Alkaline Phosphatase 130 H Total Protein 6.6 Albumin 3.2 L Globulin 3.40 H Albumin/Globulin Ratio 0.94 Vancomycin Level Trough 5.9 L Subjective 24 Hr Interval Summary Free Text/Dictation Patient denies any acute issues. Remains pleasantly confused and communication is challenging given hard of hearing. Exam/Review of Systems Exam Vitals Vital Signs Date Temp Pulse Resp B/P (MAP) Pulse Ox O2 O2 Flow FiO2 Time Delivery Rate 12/18/18 87 08:01 12/18/18 98.6 20 136/62 95 07:49 (86) 12/17/18 Room Air 16:38 Intake and Output 12/17/18 12/17/18 12/18/18 1515:00 23:00 07:00 IntakeIntake Total 700 ml 100 ml BalanceBalance 700 ml 100 ml Exam General: Patient is a pleasant female. no acute distress. hard of hearing Neck: Supple Chest: Nontender Lungs: Clear to auscultation bilaterally no crackles rales or wheezing Heart: Normal S1-S2, Regular rhythm and rate. No murmur, S3, or S4 Abdomen: Soft , nontender, nondistended , bowel sounds are present. No guarding no rebound tenderness Extremities: erythema right ankle to mid calf with warmth, no discharge or pain at site Results Results 24hrs Laboratory Tests Test 12/18/18 05:14 White Blood Count 12.7 H Red Blood Count 4.58 Hemoglobin 13.7 Hematocrit 42.3 Mean Corpuscular Volume 92.4 Mean Corpuscular Hemoglobin 29.9 Mean Corpuscular Hemoglobin Concent 32.4 Red Cell Distribution Width 13.7 Platelet Count 267 Mean Platelet Volume 10.6 H Immature Granulocytes % 1.000 H Neutrophils % 74.1 Lymphocytes % 14.9 L Monocytes % 9.1 Eosinophils % 0.3 Basophils % 0.6 Nucleated Red Blood Cells % 0.0 Immature Granulocytes # 0.130 H Neutrophils # 9.4 H Lymphocytes # 1.9 Monocytes # 1.2 H Eosinophils # 0.0 Basophils # 0.1 Nucleated Red Blood Cells # 0.0 Sodium Level 139 Potassium Level 4.2 Chloride Level 107 Carbon Dioxide Level 25 Anion Gap 7 Blood Urea Nitrogen 14 Creatinine 0.89 Est Glomerular Filtrat Rate mL/min Glucose Level 107 Calcium Level 9.9 Magnesium Level 2.2 Total Bilirubin 0.4 Direct Bilirubin 0.00 Indirect Bilirubin 0.4 Aspartate Amino Transf (AST/SGOT) 74 H Alanine Aminotransferase (ALT/SGPT) 94 H Alkaline Phosphatase 130 H Total Protein 6.6 Albumin 3.2 L Globulin 3.40 H Albumin/Globulin Ratio 0.94 Vancomycin Level Trough 5.9 L Medications Medication Current Medications IV Flush (NS 3 ml) 3 ml PER PROTOCOL IV ; Start 12/15/18 at 01:30 Ondansetron HCl (Zofran Inj) 4 mg Q6H PRN IV NAUSEA/VOMITING; Start 12/15/18 at 01:30 Acetaminophen (Tylenol Tab) 650 mg Q6H PRN PO .PAIN 1-3 OR TEMP Last administered on 12/17/18at 15:06; Admin Dose 650 MG; Start 12/15/18 at 01:30 Aztreonam 50 ml @ 100 mls/hr Q12 IVPB Last administered on 12/18/18at 09:46; Admin Dose 100 MLS/HR; Start 12/15/18 at 09:00 Miscellaneous Information (Pending [facility] Order For Wound Care) This patient felipe... PRN PRN XX WOUND CARE; Start 12/15/18 at 05:00 Vancomycin HCl (Vanco Iv Per Pharmacy) VANCOMYCIN PER PHARMACY PER PROTOCOL XX ; Start 12/15/18 at 06:00 Heparin Sodium (Porcine) (Heparin (5000 Units/1ml)) 5,000 unit BID SC Last administered on 12/18/18at 09:50; Admin Dose 5,000 UNIT; Start 12/15/18 at 09:00 Vancomycin HCl 1.25 gm/Sodium Chloride 250 ml @ 83.333 mls/ hr Q24H IVPB ; Start 12/19/18 at 01:00 SHILPI GRAVES MD December 18, 2018 10:33
--- NOTE | 2018-12-18 14:16 | CONS ---
Assessment/Plan Assessment/Plan Hospital Course (Demo Recall) No acute events overnight patient is sleeping looks comfortable no fevers. Repeat blood cultures negative. WBC 12.7 platelets 267 neutrophils 74.1 BUN 14 creatinine 0.89 Microbiology: Blood culture on admission grew strep pyogenous, urine culture grew E. coli and alpha hemolytic strep species. Repeat blood cultures negative Antimicrobials: Vancomycin and aztreonam Allergies: Penicillin, sulfa Well-developed elderly woman who is awake in no distress. Head atraumatic normocephalic sclera nonicteric neck is supple chest rise symmetrical breath sounds diminished bases. Heart: S1-S2. Abdomen soft bowel sounds present. Extremities with right lower extremity edema and erythema below knee Assessment: 1. Sepsis, present on admission 2. Strep pyogenes bacteremia ECHO neg 3. Polymicrobial UTI 4. Right lower extremity cellulitis, no evidence for DVT 5. Possible pneumonia, left lower lobe Plan: Patient is stable, repeat blood cultures, right lower extremity still with significant cellulitis, will change Azactam to cefepime, continue vancomycin. Anticipate treating with current antibiotics for 2 weeks Consultation Date/Type/Reason Admit Date/Time December 15, 2018 at 01:09 Initial Consult Date Type of Consult id Date/Time of Note DATE: 12/18/18 TIME: 14:14 Exam/Review of Systems Exam Vitals Vital Signs Date Temp Pulse Resp B/P (MAP) Pulse Ox O2 O2 Flow FiO2 Time Delivery Rate 12/18/18 98.6 85 20 134/60 98 11:04 (84) 12/17/18 Room Air 16:38 Intake and Output 12/17/18 12/17/18 12/18/18 1515:00 23:00 07:00 IntakeIntake Total 700 ml 100 ml BalanceBalance 700 ml 100 ml Results Result Diagram: 12/18/18 0514 12/18/18 0514 Results 24hrs Laboratory Tests Test 12/18/18 05:14 White Blood Count 12.7 H Red Blood Count 4.58 Hemoglobin 13.7 Hematocrit 42.3 Mean Corpuscular Volume 92.4 Mean Corpuscular Hemoglobin 29.9 Mean Corpuscular Hemoglobin Concent 32.4 Red Cell Distribution Width 13.7 Platelet Count 267 Mean Platelet Volume 10.6 H Immature Granulocytes % 1.000 H Neutrophils % 74.1 Lymphocytes % 14.9 L Monocytes % 9.1 Eosinophils % 0.3 Basophils % 0.6 Nucleated Red Blood Cells % 0.0 Immature Granulocytes # 0.130 H Neutrophils # 9.4 H Lymphocytes # 1.9 Monocytes # 1.2 H Eosinophils # 0.0 Basophils # 0.1 Nucleated Red Blood Cells # 0.0 Sodium Level 139 Potassium Level 4.2 Chloride Level 107 Carbon Dioxide Level 25 Anion Gap 7 Blood Urea Nitrogen 14 Creatinine 0.89 Est Glomerular Filtrat Rate mL/min Glucose Level 107 Calcium Level 9.9 Magnesium Level 2.2 Total Bilirubin 0.4 Direct Bilirubin 0.00 Indirect Bilirubin 0.4 Aspartate Amino Transf (AST/SGOT) 74 H Alanine Aminotransferase (ALT/SGPT) 94 H Alkaline Phosphatase 130 H Total Protein 6.6 Albumin 3.2 L Globulin 3.40 H Albumin/Globulin Ratio 0.94 Vancomycin Level Trough 5.9 L Medications Medication Current Medications IV Flush (NS 3 ml) 3 ml PER PROTOCOL IV ; Start 12/15/18 at 01:30 Ondansetron HCl (Zofran Inj) 4 mg Q6H PRN IV NAUSEA/VOMITING; Start 12/15/18 at 01:30 Acetaminophen (Tylenol Tab) 650 mg Q6H PRN PO .PAIN 1-3 OR TEMP Last administered on 12/17/18at 15:06; Admin Dose 650 MG; Start 12/15/18 at 01:30 Aztreonam 50 ml @ 100 mls/hr Q12 IVPB Last administered on 12/18/18at 09:46; Admin Dose 100 MLS/HR; Start 12/15/18 at 09:00 Miscellaneous Information (Pending [facility] Order For Wound Care) This patient felipe... PRN PRN XX WOUND CARE; Start 12/15/18 at 05:00 Vancomycin HCl (Vanco Iv Per Pharmacy) VANCOMYCIN PER PHARMACY PER PROTOCOL XX ; Start 12/15/18 at 06:00 Heparin Sodium (Porcine) (Heparin (5000 Units/1ml)) 5,000 unit BID SC Last administered on 12/18/18at 09:50; Admin Dose 5,000 UNIT; Start 12/15/18 at 09:00 Vancomycin HCl 1.25 gm/Sodium Chloride 250 ml @ 83.333 mls/ hr Q24H IVPB ; Start 12/19/18 at 01:00 MIRACLE REGAN NP December 18, 2018 14:16
[2018-12-18] MEDS: ACETAMINOPHEN 325 MG TAB PO PRN (15:53)
[2018-12-18] MEDS: CEFEPIME 1GM/50 ML (PMX) 50 ML IVPB SCH ×2 (15:54→20:32)
[2018-12-19] VITALS (8 sets, daily range): BP systolic 121–151; BP diastolic 57–78; PULSE 61–82; RESP 18–20
[2018-12-19] MEDS ORDERED: VANCOMYCIN HCL 1.25 GM in SOD CHLORIDE 0.9% 250 ML IVPB SCH (01:00)
[2018-12-19] MEDS: CEFEPIME 1GM/50 ML (PMX) 50 ML IVPB SCH (09:26)
[2018-12-19] MEDS: HEPARIN 5,000 UNIT/1 ML VIAL SC SCH (09:32)
--- NOTE | 2018-12-19 10:11 | PN ---
Date/Time of Note Date/Time of Note DATE: 12/19/18 TIME: 10:09 Assessment/Plan VTE Prophylaxis Risk score (from Ns)>0 risk: 10 SCD applied (from Ns): Yes Pharmacological prophylaxis: LMWH Lines/Catheters IV Catheter Type (from Nrs): Saline Lock Assessment/Plan Assessment/Plan 1. Severe sepsis secondary to UTI, cellulitis, and bacteremia- improving - remains afebrile - ID consultation appreciated. Bacteremia source most likely cellulitis - Lactic acid normalized 2. Strep bacteremia - most likely cellulitis as source - continue current antibiotics - repeat blood cultures with no growth 3. Acute encephalopathy secondary to sepsis - resolving. still pleasantly confused 4. right ankle cellulitis - continue current antibiotics - US negative for DVT and Xray results noted with no acute fractures 5. CRISTINA- resolved - most likely ATN etiology 6. UTI - Culture results noted 7. Disposition - Medically stable for discharge to [facility] Result Diagram: 12/18/18 0514 12/18/18 0514 Subjective 24 Hr Interval Summary Free Text/Dictation Patient doing well and in no acute distress. States still with pain RLE but feeling better. No overnight events. Exam/Review of Systems Exam Vitals Vital Signs Date Temp Pulse Resp B/P (MAP) Pulse Ox O2 O2 Flow FiO2 Time Delivery Rate 12/19/18 Room Air 08:10 12/19/18 97.7 63 19 138/65 98 07:53 (89) Intake and Output 12/18/18 12/18/18 12/19/18 1515:00 23:00 07:00 IntakeIntake Total 50 ml 400 ml BalanceBalance 50 ml 400 ml Exam General: Patient is a pleasant female. no acute distress. hard of hearing Neck: Supple Chest: Nontender Lungs: Clear to auscultation bilaterally no crackles rales or wheezing Heart: Normal S1-S2, Regular rhythm and rate. No murmur, S3, or S4 Abdomen: Soft , nontender, nondistended , bowel sounds are present. No guarding no rebound tenderness Extremities: improving erythema right ankle to mid calf with warmth, mild pain at site Medications Medication Current Medications IV Flush (NS 3 ml) 3 ml PER PROTOCOL IV ; Start 12/15/18 at 01:30 Ondansetron HCl (Zofran Inj) 4 mg Q6H PRN IV NAUSEA/VOMITING; Start 12/15/18 at 01:30 Acetaminophen (Tylenol Tab) 650 mg Q6H PRN PO .PAIN 1-3 OR TEMP Last administered on 12/18/18at 15:53; Admin Dose 650 MG; Start 12/15/18 at 01:30 Miscellaneous Information (Pending [facility] Order For Wound Care) This patient felipe... PRN PRN XX WOUND CARE; Start 12/15/18 at 05:00 Vancomycin HCl (Vanco Iv Per Pharmacy) VANCOMYCIN PER PHARMACY PER PROTOCOL XX ; Start 12/15/18 at 06:00 Heparin Sodium (Porcine) (Heparin (5000 Units/1ml)) 5,000 unit BID SC Last administered on 12/19/18at 09:32; Admin Dose 5,000 UNIT; Start 12/15/18 at 09:00 Vancomycin HCl 1.25 gm/Sodium Chloride 250 ml @ 83.333 mls/ hr Q24H IVPB Last administered on 12/19/18at 01:13; Admin Dose 83.333 MLS/HR; Start 12/19/18 at 01:00 Cefepime HCl 50 ml @ 100 mls/hr Q12 IVPB Last administered on 12/19/18at 09:26; Admin Dose 100 MLS/HR; Start 12/18/18 at 14:30 SHILPI GRAVES MD December 19, 2018 10:11
--- NOTE | 2018-12-19 10:15 | PDOCDIS ---
Discharge Instructions DIAGNOSIS Discharge Diagnosis 1. Severe sepsis secondary to UTI, cellulitis, and bacteremia- resolving 2. Strep bacteremia- resolved 3. Acute encephalopathy secondary to sepsis- resolved 4. right ankle cellulitis- improving 5. CRISTINA- resolved 6. UTI CONDITION [id number] Patient Condition: [id number] Stable HOME CARE INSTRUCTIONS: [id number] Diet Instructions: [id number] Low Fat /Cholesterol ACTIVITY: [id number] Activity Restrictions: [id number] No Restrictions FOLLOW UP/APPOINTMENTS Follow-up Plan 1. Follow up with your primary care physician in 1 week 2. You will need to continue on Vancomycin until 12/29 and Cefepime until 01/01 to complete total of 2 week course for treatment of the infection in your blood, urinary tract infection, and cellulitis 3. If experiencing any concerning symptoms, please go to your nearest emergency department SHILPI GRAVES MD December 19, 2018 10:15
--- NOTE | 2018-12-19 10:50 | CONS ---
Assessment/Plan Assessment/Plan Hospital Course (Demo Recall) No acute events overnight per report, no fevers Microbiology: Blood culture on admission grew strep pyogenous, urine culture grew E. coli and alpha hemolytic strep species. Repeat blood cultures negative Antimicrobials: Vancomycin and Cefepime Allergies: Penicillin, sulfa Well-developed elderly woman who is awake in no distress. Head atraumatic normocephalic sclera nonicteric neck is supple chest rise symmetrical breath sounds diminished bases. Heart: S1-S2. Abdomen soft bowel sounds present. Extremities with right lower extremity edema and erythema below knee Assessment: 1. Sepsis, present on admission 2. Strep pyogenes bacteremia ECHO neg 3. Polymicrobial UTI 4. Right lower extremity cellulitis, no evidence for DVT 5. Possible pneumonia, left lower lobe Plan: Remains stable, repeat blood cultures negative, continue abx for 10 more d ays, pending SNF. Consultation Date/Type/Reason Admit Date/Time December 15, 2018 at 01:09 Initial Consult Date Type of Consult id Date/Time of Note DATE: 12/19/18 TIME: 10:49 Exam/Review of Systems Exam Vitals Vital Signs Date Temp Pulse Resp B/P (MAP) Pulse Ox O2 O2 Flow FiO2 Time Delivery Rate 12/19/18 Room Air 08:10 12/19/18 74 08:01 12/19/18 97.7 19 138/65 98 07:53 (89) Intake and Output 12/18/18 12/18/18 12/19/18 1515:00 23:00 07:00 IntakeIntake Total 50 ml 400 ml BalanceBalance 50 ml 400 ml Results Result Diagram: 12/18/18 0514 12/18/18 0514 Medications Medication Current Medications IV Flush (NS 3 ml) 3 ml PER PROTOCOL IV ; Start 12/15/18 at 01:30 Ondansetron HCl (Zofran Inj) 4 mg Q6H PRN IV NAUSEA/VOMITING; Start 12/15/18 at 01:30 Acetaminophen (Tylenol Tab) 650 mg Q6H PRN PO .PAIN 1-3 OR TEMP Last admin istered on 12/18/18at 15:53; Admin Dose 650 MG; Start 12/15/18 at 01:30 Miscellaneous Information (Pending [facility] Order For Wound Care) This patient felipe... PRN PRN XX WOUND CARE; Start 12/15/18 at 05:00 Vancomycin HCl (Vanco Iv Per Pharmacy) VANCOMYCIN PER PHARMACY PER PROTOCOL XX ; Start 12/15/18 at 06:00 Heparin Sodium (Porcine) (Heparin (5000 Units/1ml)) 5,000 unit BID SC Last administered on 12/19/18at 09:32; Admin Dose 5,000 UNIT; Start 12/15/18 at 09:00 Vancomycin HCl 1.25 gm/Sodium Chloride 250 ml @ 83.333 mls/ hr Q24H IVPB Last administered on 12/19/18at 01:13; Admin Dose 83.333 MLS/HR; Start 12/19/18 at 01:00 Cefepime HCl 50 ml @ 100 mls/hr Q12 IVPB Last administered on 12/19/18at 09:26; Admin Dose 100 MLS/HR; Start 12/18/18 at 14:30 MIRACLE REGAN NP December 19, 2018 10:50
--- NOTE | 2018-12-19 14:20 | DS ---
Date/Time of Note Date/Time of Note DATE: 12/19/18 TIME: 14:16 Discharge Summary Admission/Discharge Info Admit Date/Time December 15, 2018 at 01:09 Discharge Date/Time 12/19/18 Discharge Diagnosis 1. Severe sepsis secondary to UTI, cellulitis, and bacteremia- resolving 2. Strep bacteremia- resolved 3. Acute encephalopathy secondary to sepsis- resolved 4. right ankle cellulitis- improving 5. CRISTINA- resolved 6. UTI Patient Condition: Stable Consults Infectious disease- Dr Guerrero Hx of Present Illness Chief complaint: Confused, lethargic Following history was obtained from the ED physician documentation, as patient was not able to provide adequate history. This is a 88-year-old female who presents to the emergency room with history provided by her son. It appears over the past 12 to 24 hours the patient has been increasingly confused, more lethargic and with decreased responsiveness. Patient had no focal deficits that were reported by family members. Daughter has reported some strong odor from her urine over the past 24 hours. Patient is describing of occasional dizziness, nonbloody nonbilious emesis. She denies any headache chest pain shortness of breath or abdominal pain. Upon examination of the patient at the bedside the patient is alert and awake and very pleasant. Allergies: Penicillin, sulfa Hospital Course Patient was admitted for treatment of acute toxic encephalopathy and IVF and IV antibiotics were started. ID was consulted for antibiotic recommendations. Patient was ladd cultures and blood cultures grew strep which was believed to be secondary to patient RLE cellulitis. She was also found with UTI. Patients mentation improved during course of hospitalization and overall condition improved. Infectious disease recommended 14 day course for antibiotics. PT evaluated patient and recommended SNF placement. Patients presenting symptoms improved significantly and on day of discharge, vitals and physical exam were stable. Patient was discharged to SNF in stable condition. Home Meds No Active Prescriptions or Reported Meds Follow-up Plan 1. Follow up with your primary care physician in 1 week 2. You will need to continue on Vancomycin until 12/29 and Cefepime until 01/01 to complete total of 2 week course for treatment of the infection in your blood, urinary tract infection, and cellulitis 3. If experiencing any concerning symptoms, please go to your nearest emergency department Primary Care Provider Wilfrid Sharma MD Time spent on discharge: > 30 minutes SHILPI GRAVES MD December 19, 2018 14:20
== END 2018-12-19 16:14 | DRG 871 ==
LOC: E/R 22:02 → 6WM 12-15 01:09
PROVIDERS: ADMIT Family Medicine; ATTEND Family Medicine
DX: A40.0 Sepsis due to streptococcus, group A (principal); N17.0 Acute kidney failure with tubular necrosis; G93.41 Metabolic encephalopathy; N39.0 Urinary tract infection, site not specified; L03.115 Cellulitis of right lower limb; R65.20 Severe sepsis without septic shock; E66.9 Obesity, unspecified; Z68.32 Body mass index [BMI] 32.0-32.9, adult
CPT/HCPCS: 36415; 70450; 71045; 73630; 74176; 80053; 80202; 81001; 82306; 83036; 83605; 83735; 84443; 84484; 85025; 85610; 85651; 85730; 86140; 87086; 93005; 93306; 93970; 96365; 96366; 97165; J0692; J1644; J1956; J3370; J7030; J7040; J7050